=== PATIENT | male | born 1950 | race Caucasian/White ===

== ENCOUNTER 2017-04-11 09:49 | Observation (INO) | payer MEDICARE, BC ==
--- NOTE | 2017-04-11 10:32 | EDM.PDOC ---
ED HPI GENERAL MEDICAL PROBLEM - General Stated Complaint: LOW POTASSIUM Time Seen by Provider: 04/11/17 10:27 Source of Information: Reports: Family History Limitations: Reports: No Limitations - History of Present Illness INITIAL COMMENTS - FREE TEXT/NARRATIVE: Patient is a pleasant 67-year-old gentleman who presented from the clinic with hypokalemia 2.1. His past medical history significant for multiple sclerosis and is chronically diuretics for lower extremity swelling. Had episode of diarrhea that lasted for 3 days last week. Diarrhea is resolved now. Patient was seen by his MS physician in [place] - 2 days ago. Routine blood revealed Hypokalemia the patient does not remember at the level. He was given prescription for potassium and advised to follow with his primary care physician. Today he was seen in clinic and repeat potassium came back 2.1 and he was sent to the emergency room for further evaluation. Patient continued to take his home dose of Lasix. He was brought to the emergency room accompanied by his for further evaluation. Denied any fever, chills, chest pain, shortness of breath, nausea or vomiting. Onset: Gradual Onset Date: 04/09/17 (diagnosed by his MS physician in [place]) Duration: Day(s):, Getting Worse Location: Reports: Other Severity: Moderate Treatments PESTICIDE CONTROL INSPECTOR: Reports: Other (see below) Other Treatments PESTICIDE CONTROL INSPECTOR: Patient was on potassium tablets prior to arrival. R leg Pain Score (Numeric/FACES): 3 - Related Data Allergies Allergy/AdvReac Type Severity Reaction Status Date / Time mold Allergy Sneezing Verified 04/11/17 10:33 Penicillins Allergy Rash Verified 06/29/16 13:22 Home Meds: Home Meds Gabapentin [Neurontin] 300 mg PO BEDTIME 12/31/13 [History] Levothyroxine Sodium [Synthroid] 225 mcg PO DAILY@1600 12/31/13 [History] Omeprazole [priLOSEC OTC] 20 mg PO DAILY@1600 12/31/13 [History] Sertraline [Zoloft] 100 mg PO DAILY@1600 12/31/13 [History] tiZANidine [Zanaflex] 4 mg PO BEDTIME 12/31/13 [History] Aminopyridine 10 mg PO TID@08,12,18 06/29/16 [History] Baclofen [Lioresal] 40 mg PO BID 06/29/16 [History] Cyanocobalamin (Vitamin B12) [Vitamin B12] 250 mcg PO DAILY 06/29/16 [History] Diazepam 10 mg PO TID PRN 06/29/16 [History] Docusate Sodium 100 mg PO BID PRN 06/29/16 [History] Furosemide 80 mg PO BID@08,12 06/29/16 [History] Hydrocodone/Acetaminophen [Hydrocodon-Acetaminophen 5-325] 0.5 tab PO Q6H PRN [History] Tamsulosin [Flomax] 0.4 mg PO DAILY 06/29/16 [History] Warfarin [Coumadin] 2.5 mg PO MOFR@1600 06/29/16 [History] Warfarin [Coumadin] 5 mg PO SUTUWETHSA@1600 06/29/16 [History] Baclofen 20 mg PO DAILY@1200 04/11/17 [History] Cholecalciferol (Vitamin D3) [Vitamin D3] 2,000 unit PO DAILY 04/11/17 [History] Metolazone [Metolazone] 2.5 mg FR 04/11/17 [History] Potassium Chloride [Klor-Con 10] 10 meq PO BID 04/11/17 [History] Past Medical History Cardiovascular History: Reports: Blood Clots/VTE/DVT Gastrointestinal History: Reports: GERD Genitourinary History: Reports: Other (See Below) Other Genitourinary History: indwelling estevez Neurological History: Reports: MS Endocrine/Metabolic History: Reports: Hypothyroidism Dermatologic History: Reports: Other (See Below) Other Dermatologic History: had bed sore after hospitalization in [place] last year, is healed - Past Surgical History HEENT Surgical History: Reports: Detached Retina, Oral Surgery GI Surgical History: Reports: Colonoscopy, Hernia Repair/Other Neurological Surgical History: Reports: Other (See Below) Musculoskeletal Surgical History: Reports: Arthroscopic Knee Social & Family History - Tobacco Use Smoking Status *Q: Never Smoker - Recreational Drug Use Recreational Drug Use: No ED ROS GENERAL - Review of Systems Review Of Systems: ROS reveals no pertinent complaints other than HPI. ED EXAM, GENERAL - Physical Exam Exam: See Below Exam Limited By: No Limitations General Appearance: Alert, No Apparent Distress, Other Ears: Normal External Exam, Normal TMs Nose: Normal Inspection Throat/Mouth: Normal Inspection Head: Atraumatic, Normocephalic Respiratory/Chest: No Respiratory Distress, Lungs Clear GI/Abdominal: Normal Bowel Sounds, Non-Tender, No Organomegaly Extremities: Pedal Edema, Other (Mild bilateral pedal edema) Neurological: Alert, Oriented, Normal Cognition, Other (History of multiple sclerosis and wheel chair bound at baseline. ) Psychiatric: Normal Affect, Normal Mood Skin Exam: Warm, Intact Lymphatic: No Adenopathy Course - Vital Signs Last Recorded V/S: Last Vital Signs Temp 36.7 C 04/11/17 09:55 Pulse 70 04/11/17 09:55 Resp 18 04/11/17 09:55 BP 98/56 L 04/11/17 09:55 Pulse Ox 93 L 04/11/17 09:55 - Orders/Labs/Meds Orders: Active Orders 24 hr Category Date Time Status EKG Documentation Completion [RC] ASDIRECTED Care 04/11/17 11:49 Active Sodium Chloride 0.9% [Normal Saline] 1,000 ml Med 04/11/17 10:45 Active IV ASDIRECTED EKG 12 Lead [EK] Routine Ther 04/11/17 11:49 Ordered Medication Orders Sodium Chloride (Normal Saline) 1,000 mls @ 50 mls/hr IV ASDIRECTED LUIS FERNANDO Last Admin: 04/11/17 10:55 Dose: 50 mls/hr Labs: Laboratory Tests 04/11/17 04/11/17 04/11/17 Range/Units 10:30 10:30 11:27 WBC 8.1 (4.5-12.0) X10-3/uL RBC 5.34 (4.30-5.75) x10(6)uL Hgb 14.8 (11.5-15.5) g/dL Hct 45.7 (30.0-51.3) % MCV 85.6 (80-96) fL MCH 27.7 (27.7-33.6) pg MCHC 32.3 (32.2-35.4) g/dL RDW 15.3 (11.5-15.5) % Plt Count 268 (125-369) X10(3)uL MPV 6.7 L (7.4-10.4) fL Neut % (Auto) 67.3 (46-82) % Lymph % (Auto) 21.2 (13-37) % Cherry % (Auto) 6.3 (4-12) % Eos % (Auto) 1 (1.0-5.0) % Baso % (Auto) 4 H (0-2) % Neut # (Auto) 5.5 (1.6-8.3) # Lymph # (Auto) 1.7 (0.6-5.0) # Cherry # (Auto) 0.5 (0.0-1.3) # Eos # (Auto) 0.1 (0.0-0.8) # Baso # (Auto) 0.3 H (0.0-0.2) # PT 17.7 H (8.7-11.1) INR 1.73 H (0.89-1.13) Sodium 135 (135-145) mmol/L Potassium 2.0 L* D (3.5-5.3) mmol/L Chloride 86 L* D (100-110) mmol/L Carbon Dioxide 42 H* (23-29) mmol/L BUN 20 (8-23) mg/dL Creatinine 1.2 (0.6-1.3) mg/dL Est Cr Clr Drug Dosing 67.36 mL/min Estimated GFR (MDRD) > 60 (>60) BUN/Creatinine Ratio 16.7 (9-20) Glucose 180 H D (80-116) mg/dL Calcium 8.9 (8.6-10.2) mg/dL Magnesium 2.3 (1.8-2.5) mg/dL Total Bilirubin 1.0 (0.1-1.3) mg/dL AST 23 D (5-27) IU/L ALT 25 D (14-26) IU/L Alkaline Phosphatase 64 (56-112) IU/L Total Protein 7.4 (6.0-8.0) g/dL Albumin 3.8 (3.2-4.6) g/dL Globulin 3.6 g/dL Albumin/Globulin Ratio 1.1 Meds: Medications Generic Name Dose Route Start Last Admin Trade Name Freq PRN Reason Stop Dose Admin Sodium Chloride 1,000 mls @ 50 mls/hr 04/11/17 10:45 04/11/17 10:55 Normal Saline IV 50 mls/hr ASDIRECTED LUIS FERNANDO Administration Discontinued Medications Generic Name Dose Route Start Last Admin Trade Name Freq PRN Reason Stop Dose Admin Potassium Chloride 10 meq/ 100 mls @ 100 mls/hr 04/11/17 10:42 04/11/17 10:55 Premix IV 04/11/17 11:41 100 mls/hr ONETIME ONE Administration Potassium Chloride 40 meq 04/11/17 10:43 04/11/17 11:00 Klor-Con M20 PO 04/11/17 10:44 40 meq ONETIME ONE Administration - Re-Assessments/Exams Free Text/Narrative Re-Assessment/Exam: 04/11/17 10:40 67-year-old gentleman with history of multiple sclerosis presenting with significant Hypokalemia 2.1 in the setting diuretics as well as recent episode of diarrhea. Baseline blood work was done including CBC, CMP, magnesium level. Patient was monitored in the emergency room. 04/11/17 11:51 >>>Patient was started on IV Potassium 10 meq via peripheral line and po kcl 40 meq was given. >>>Labs reviewed. Repeat K -- 2.0. He will benefit from admission and correction of Hypokalemia Free Text/Narrative Re-Assessment/Exam: 04/11/17 11:53 >>Severe Hypokalemia >>Dehydration Departure - Departure Time of Disposition: 12:06 (Admitted for observation) Disposition: Refer to Observation Condition: Fair Clinical Impression: Hypokalemia, Dehydration, moderate, Hypokalemia - Discharge Information Critical Care Note - Critical Care Note Total Time (mins): 65 ED Communication - Discussed Case With (1) Discussed Case With (1): Admitting Provider Person/s Notified (1): Dr. Salter - Conversation Summary Admitting Provider Agreed to Patient's Admission: Yes - Problem List & Annotations (1) Hypokalemia SNOMED Code(s): 02099114 Code(s): E87.6 - HYPOKALEMIA Status: Acute Priority: High Current Visit : Yes Onset Date: ~04/11/17 (2) Dehydration, moderate SNOMED Code(s): 9490999170009 Code(s): E86.0 - DEHYDRATION Status: Acute Priority: Medium Current Visit: Yes - Problem List Review Problem List Initiated/Reviewed/Updated: Yes - My Orders Last 24 Hours: My Active Orders 04/11/17 10:45 Sodium Chloride 0.9% [Normal Saline] 1,000 ml IV ASDIRECTED 04/11/17 11:49 EKG Documentation Completion [RC] ASDIRECTED EKG 12 Lead [EK] Routine - Assessment/Plan Last 24 Hours: My Active Orders 04/11/17 10:45 Sodium Chloride 0.9% [Normal Saline] 1,000 ml IV ASDIRECTED 04/11/17 11:49 EKG Documentation Completion [RC] ASDIRECTED EKG 12 Lead [EK] Routine
[2017-04-11] MEDS ORDERED: Potassium Chloride 10 MEQ in Premix Bag 1 BAG IV ONE ×2 (10:42→12:20)
[2017-04-11] MEDS ORDERED: Potassium Chloride 20 MEQ Tab.ER PO ONE (10:43)
[2017-04-11] MEDS ORDERED: Sodium Chloride 0.9% 1,000 ML IV SCH (10:45)
[2017-04-11] MEDS ORDERED: Docusate Sodium 100 MG Cap PO PRN (12:27)
[2017-04-11] MEDS ORDERED: Acetaminophen/HYDROcodone 325-5 MG Tab PO PRN (12:27)
[2017-04-11] MEDS ORDERED: Diazepam 10 MG Tab PO PRN (12:27)
[2017-04-11] MEDS ORDERED: Warfarin 5 MG Tab *PTOM PO SCH (16:00)
[2017-04-11] MEDS: Levothyroxine 150 MCG Tab *PTOM PO SCH (16:29)
[2017-04-11] MEDS: OMEPRAZOLE 20 MG PO SCH (16:29)
[2017-04-11] MEDS: Sertraline 100 MG Tab *PTOM PO SCH (16:31)
--- NOTE | 2017-04-11 17:18 | PCM.HP ---
H&P History of Present Illness - General Date of Service: 04/11/17 Admit Problem/Dx: Admission Diagnosis/Problem Admission Diagnosis/Problem Hypokalemia Source of Information: Patient, Family History Limitations: Reports: No Limitations - History of Present Illness Initial Comments - Free Text/Narative: This is a 67-year-old male patient that is wheelchair bound from [place]. He had gastroenteritis over the weekend and was found to be hypokalemic. I gave him some extra potassium as potassium was continued to drop. He takes Lasix daily and metolazone once a week. His diarrhea is gone now. You see in the ER and his potassium was 2.0. He has no concerns today. Has no chest pain, palpitations, shortness of breath, leg swelling. R leg Pain Score (Numeric/FACES): 3 - Related Data Allergies/Adverse Reactions: Allergies Allergy/AdvReac Type Severity Reaction Status Date / Time mold Allergy Sneezing Verified 04/11/17 10:33 Penicillins Allergy Rash Verified 06/29/16 13:22 Home Medications: Home Meds Gabapentin [Neurontin] 300 mg PO BEDTIME 12/31/13 [History] Levothyroxine Sodium [Synthroid] 225 mcg PO DAILY@1600 12/31/13 [History] Omeprazole [priLOSEC OTC] 20 mg PO DAILY@1600 12/31/13 [History] Sertraline [Zoloft] 100 mg PO DAILY@1600 12/31/13 [History] tiZANidine [Zanaflex] 4 mg PO BEDTIME 12/31/13 [History] Aminopyridine 10 mg PO TID@08,12,18 06/29/16 [History] Baclofen [Lioresal] 40 mg PO BID 06/29/16 [History] Cyanocobalamin (Vitamin B12) [Vitamin B12] 250 mcg PO DAILY 06/29/16 [History] Diazepam 10 mg PO TID PRN 06/29/16 [History] Docusate Sodium 100 mg PO BID PRN 06/29/16 [History] Furosemide 80 mg PO BID@08,12 06/29/16 [History] Hydrocodone/Acetaminophen [Hydrocodon-Acetaminophen 5-325] 0.5 tab PO Q6H PRN [History] Tamsulosin [Flomax] 0.4 mg PO DAILY 06/29/16 [History] Warfarin [Coumadin] 2.5 mg PO MOFR@1600 06/29/16 [History] Warfarin [Coumadin] 5 mg PO SUTUWETHSA@1600 06/29/16 [History] Baclofen 20 mg PO DAILY@1200 04/11/17 [History] Cholecalciferol (Vitamin D3) [Vitamin D3] 2,000 unit PO DAILY 04/11/17 [History] Metolazone [Metolazone] 2.5 mg FR 04/11/17 [History] Potassium Chloride [Klor-Con 10] 10 meq PO BID 04/11/17 [History] Past Medical History HEENT History: Reports: Impaired Vision Cardiovascular History: Reports: Blood Clots/VTE/DVT Gastrointestinal History: Reports: GERD Genitourinary History: Reports: Other (See Below) Other Genitourinary History: indwelling estevez Musculoskeletal History: Reports: None Other Musculoskeletal History: Hx MS Neurological History: Reports: MS Psychiatric History: Reports: Depression Endocrine/Metabolic History: Reports: Hypothyroidism Dermatologic History: Reports: Other (See Below) Other Dermatologic History: had bed sore after hospitalization in [place] last year, is healed - Infectious Disease History Infectious Disease History: Reports: Chicken Pox, Measles, Mumps - Past Surgical History HEENT Surgical History: Reports: Detached Retina, Oral Surgery Other HEENT Surgeries/Procedures: tooth pulled Cardiovascular Surgical History: Reports: None GI Surgical History: Reports: Colonoscopy, Hernia Repair/Other Male Surgical History: Reports: None Endocrine Surgical History: Reports: None Neurological Surgical History: Reports: Other (See Below) Other Neurological Surgeries/Procedures: neck surgery Musculoskeletal Surgical History: Reports: Arthroscopic Knee, Other (See Below) Other Musculoskeletal Surgeries/Procedures:: Right knee arthroscopic surgery Social & Family History - Family History Family Medical History: Noncontributory - Tobacco Use Smoking Status *Q: Never Smoker Second Hand Smoke Exposure: No - Caffeine Use Caffeine Use: Reports: Soda - Recreational Drug Use Recreational Drug Use: No H&P Review of Systems - Review of Systems: Review Of Systems: See Below General: Reports: No Symptoms HEENT: Reports: No Symptoms Pulmonary: Reports: No Symptoms Cardiovascular: Reports: No Symptoms Gastrointestinal: Reports: No Symptoms Genitourinary: Reports: No Symptoms Musculoskeletal: Reports: Other (Weakness due to MS) Skin: Reports: No Symptoms Psychiatric: Reports: No Symptoms Neurological: Reports: No Symptoms Hematologic/Lymphatic: Reports: No Symptoms Immunologic: Reports: No Symptoms Exam - Exam Exam: See Below - Vital Signs Vital Signs: Last Vital Signs Temp 98.5 F 04/11/17 16:10 Pulse 72 04/11/17 16:10 Resp 16 04/11/17 16:10 BP 100/60 04/11/17 16:10 Pulse Ox 91 L 04/11/17 16:10 Weight: 275 lb - Exam General: Alert, Oriented, Cooperative HEENT: PERRLA, Posterior Pharynx Clear, TMs Clear Neck: Supple, Trachea Midline Lungs: Clear to Auscultation, Normal Respiratory Effort Cardiovascular: Regular Rate, Regular Rhythm. No: Systolic Murmur, Diastolic Murmur Abdomen: Normal Bowel Sounds, Soft. No: Peritoneal Signs, Distention, Guarding Extremities: No: Edema Neuro Extensive - Mental Status: Alert, Oriented x3, Normal Mood/Affect, Normal Cognition Neuro Extensive - Motor, Sensory, Reflexes: No: Normal Gait Psychiatric: Alert, Normal Affect, Normal Mood - Patient Data Result Diagrams: 04/11/17 10:30 04/11/17 10:30 *Q Meaningful Use (ADM) - VTE *Q VTE Criteria *Q: - Stroke *Q Stroke Criteria *Q: - AMI *Q AMI Criteria *Q: - Problem List (1) Hypokalemia SNOMED Code(s): 91021748 ICD Code: E87.6 - HYPOKALEMIA Status: Acute Priority: High Current Visit: Yes Onset Date: ~04/11/17 (2) Multiple sclerosis SNOMED Code(s): 81406399 ICD Code: G35 - MULTIPLE SCLEROSIS Status: Acute Current Visit: No Problem List Initiated/Reviewed/Updated: Yes Orders Last 24hrs: Active Orders 24 hr Category Date Time Status Antiembolic Devices [RC] .Routine Care 04/11/17 12:16 Active Cardiac Monitoring [RC] QSHIFT Care 04/11/17 12:12 Active Pulse Oximetry [RC] .PRN Care 04/11/17 12:16 Active VTE/DVT Education [RC] Click to Edit Care 04/11/17 12:16 Active Vital Signs [RC] 00,04,08,12,16,20 Care 04/11/17 12:16 Active Heart Healthy Diet [DIET] Diet 04/11/17 Dinner Active BASIC METABOLIC PANEL,BMP [CHEM] AM Lab 04/12/17 05:11 Ordered Acetaminophen/HYDROcodone [[place] 325-5 MG] Med 04/11/17 12:27 Active 0.5 tab PO Q6H PRN Aminopyridine Med 04/11/17 18:00 Active 10 mg PO TID@08,12,18 Baclofen [Baclofen] Med 04/11/17 17:15 Active 20 mg PO DAILY@1200 Baclofen [Lioresal] Med 04/11/17 21:00 Active 40 mg PO BID Cholecalciferol (Vitamin D3) [Vitamin D3] Med 04/12/17 09:00 Active 5,000 unit PO DAILY Cyanocobalamin (Vitamin B12) [Vitamin B12] Med 04/12/17 09:00 Active 1,000 mcg PO DAILY Diazepam [Valium] Med 04/11/17 12:27 Active 10 mg PO TID PRN Docusate Sodium [Colace] Med 04/11/17 12:27 Active 100 mg PO BID PRN Gabapentin [Neurontin] Med 04/11/17 21:00 Active 300 mg PO BEDTIME Levothyroxine Med 04/11/17 16:00 Active 225 mcg PO DAILY@1600 Omeprazole [priLOSEC OTC] Med 04/11/17 16:00 Active 20 mg PO DAILY@1600 Potassium Chloride [Klor-Con M20] Med 04/11/17 17:00 Active 40 meq PO TID Sertraline [Zoloft] Med 04/11/17 16:00 Active 100 mg PO DAILY@1600 Tamsulosin [Flomax] Med 04/12/17 09:00 Active 0.4 mg PO DAILY Warfarin [Coumadin] Med 04/13/17 16:00 Active 2.5 mg PO MOFR@1600 Warfarin [Coumadin] Med 04/12/17 16:00 Active 5 mg PO SUTUWETHSA@1600 tiZANidine [Zanaflex] Med 04/11/17 21:00 Active 4 mg PO BEDTIME Convert IV to Saline Lock [OM.PC] Routine Oth 04/11/17 14:56 Ordered DVT/VTE Prophylaxis Reflex [OM.PC] Per Unit Routine Oth 04/11/17 12:16 Ordered Resuscitation Status Routine Resus Stat 04/11/17 12:15 Ordered Medication Orders Hydrocodone Bitart/Acetaminophen ([place] 325-5 Mg) 0.5 tab PO Q6H PRN PRN Reason: Pain Cyanocobalamin (Vitamin B12) 1,000 mcg PO DAILY [facility] Diazepam (Valium) 10 mg PO TID PRN PRN Reason: Spasms Docusate Sodium (Colace) 100 mg PO BID PRN PRN Reason: Constipation Gabapentin (Neurontin) 300 mg PO BEDTIME [facility] Levothyroxine Sodium (Levothyroxine) 225 mcg PO DAILY@1600 [facility] Last Admin: 04/11/17 16:29 Dose: 225 mcg Aminopyridine 5mg (Caps *Ptom) 10 mg PO TID@08,12,18 [facility] Baclofen 20mg *Ptom 40 mg PO BID [facility] Vitamin D 5,000 (Units) 5,000 unit PO DAILY [facility] Omeprazole 20mg Tab (*Ptom) 20 mg PO DAILY@1600 [facility] Last Admin: 04/11/17 16:29 Dose: 20 mg Baclofen 20 Mg 20 mg PO DAILY@1200 [facility] Potassium Chloride (Klor-Con M20) 40 meq PO TID [facility] Sertraline HCl (Zoloft) 100 mg PO DAILY@1600 [facility] Last Admin: 04/11/17 16:31 Dose: 100 mg Tamsulosin HCl (Flomax) 0.4 mg PO DAILY [facility] Tizanidine HCl (Zanaflex) 4 mg PO BEDTIME [facility] Warfarin Sodium (Coumadin) 2.5 mg PO MOFR@1600 [facility] Warfarin Sodium (Coumadin) 5 mg PO SUTUWETHSA@1600 [facility] Assessment/Plan Comment:: 1. Admit to observation. 2. He was given 10 mEq of IV potassium. I'll put him on 40 mEq 3 times a day by mouth. 3. Check panel 8 in the morning. 4. Telemetry. 5. Regular diet. 6. Patient was to be a DNR/DNI. I wrote that order.
[2017-04-11] MEDS: Potassium Chloride 20 MEQ Tab.ER PO SCH ×2 (17:22→20:01)
[2017-04-11] MEDS: BACLOFEN 20 MG PO SCH ×2 (17:23→20:00)
[2017-04-11] MEDS: AMINOPYRIDINE PO SCH (17:27)
[2017-04-11] MEDS ORDERED: TIZANIDINE 4 MG PO SCH (21:00)
--- NOTE | 2017-04-12 07:35 | PCM.PN ---
- General Info Date of Service: 04/12/17 Admission Dx/Problem (Free Text): Patient without complaints. He denies chest pain, palpitations, shortness of breath or leg swelling. - Patient Data Vitals - most recent: Last Vital Signs Temp 98.1 F 04/12/17 03:54 Pulse 71 04/12/17 03:54 Resp 17 04/12/17 03:54 BP 105/68 04/12/17 03:54 Pulse Ox 85 L 04/12/17 03:54 Weight - most recent: 275 lb I&O - last 24 hours: Intake & Output 04/11/17 04/12/17 04/12/17 22:59 06:59 14:59 Intake Total 200 775 Output Total 350 500 Balance -150 275 Lab Results last 24 hrs: Laboratory Results - last 24 hr 04/12/17 Range/Units 06:10 Sodium 140 (135-145) mmol/L Potassium 2.7 L* (3.5-5.3) mmol/L Chloride 92 L D (100-110) mmol/L Carbon Dioxide 39 H (23-29) mmol/L BUN 19 (8-23) mg/dL Creatinine 1.0 (0.6-1.3) mg/dL Est Cr Clr Drug Dosing 80.83 mL/min Estimated GFR (MDRD) > 60 (>60) BUN/Creatinine Ratio 19.0 (9-20) Glucose 118 H (80-116) mg/dL Calcium 8.9 (8.6-10.2) mg/dL Med Orders - Current: Current Medications Hydrocodone Bitart/Acetaminophen ([place] 325-5 Mg) 0.5 tab PO Q6H PRN PRN Reason: Pain Cyanocobalamin (Vitamin B12) 1,000 mcg PO DAILY [facility] Diazepam (Valium) 10 mg PO TID PRN PRN Reason: Spasms Docusate Sodium (Colace) 100 mg PO BID PRN PRN Reason: Constipation Gabapentin (Neurontin) 300 mg PO BEDTIME [facility] Last Admin: 04/11/17 20:01 Dose: 300 mg Levothyroxine Sodium (Levothyroxine) 225 mcg PO DAILY@1600 [facility] Last Admin: 04/11/17 16:29 Dose: 225 mcg Aminopyridine 5mg (Caps *Ptom) 10 mg PO TID@08,12,18 [facility] Last Admin: 04/11/17 17:27 Dose: 10 mg Baclofen 20mg *Ptom 40 mg PO BID [facility] Last Admin: 04/11/17 20:00 Dose: 40 mg Vitamin D 5,000 (Units) 5,000 unit PO DAILY [facility] Omeprazole 20mg Tab (*Ptom) 20 mg PO DAILY@1600 [facility] Last Admin: 04/11/17 16:29 Dose: 20 mg Baclofen 20 Mg 20 mg PO DAILY@1200 [facility] Last Admin: 04/11/17 17:23 Dose: 20 mg Potassium Chloride (Klor-Con M20) 40 meq PO TID [facility] Last Admin: 04/11/17 20:01 Dose: 40 meq Sertraline HCl (Zoloft) 100 mg PO DAILY@1600 [facility] Last Admin: 04/11/17 16:31 Dose: 100 mg Tamsulosin HCl (Flomax) 0.4 mg PO DAILY [facility] Tizanidine HCl (Zanaflex) 4 mg PO BEDTIME [facility] Last Admin: 04/11/17 20:02 Dose: 4 mg Warfarin Sodium (Coumadin) 2.5 mg PO MOFR@1600 [facility] Warfarin Sodium (Coumadin) 5 mg PO SUTUWETHSA@1600 [facility] Discontinued Medications Potassium Chloride 10 meq/ (Premix) 100 mls @ 100 mls/hr IV ONETIME ONE Stop: 04/11/17 11:41 Last Admin: 04/11/17 10:55 Dose: 100 mls/hr Sodium Chloride (Normal Saline) 1,000 mls @ 50 mls/hr IV ASDIRECTED [facility] Last Admin: 04/11/17 10:55 Dose: 50 mls/hr Potassium Chloride 10 meq/ (Premix) 100 mls @ 100 mls/hr IV ONETIME ONE Stop: 04/11/17 13:19 Last Admin: 04/11/17 13:39 Dose: Not Given Baclofen 20 Mg 20 mg PO DAILY@1200 [facility] Potassium Chloride (Klor-Con M20) 40 meq PO ONETIME ONE Stop: 04/11/17 10:44 Last Admin: 04/11/17 11:00 Dose: 40 meq Warfarin Sodium (Coumadin) 10 mg PO 1600 [facility] Stop: 04/11/17 16:01 Last Admin: 04/11/17 16:27 Dose: 10 mg - Exam General: alert, oriented, cooperative Neck: supple Lungs: Clear to auscultation, Normal respiratory effort. No: Crackles, Rales, Rhonchi Cardiovascular: Regular Rate, Regular Rhythm. No: No Murmurs, Bradycardia, Tachycardia, Murmurs Extremities: no edema - Problem List & Annotations (1) Hypokalemia SNOMED Code(s): 88556219 Code(s): E87.6 - HYPOKALEMIA Status: Acute Priority: High Current Visit : Yes Onset Date: ~04/11/17 (2) Multiple sclerosis SNOMED Code(s): 53593023 Code(s): G35 - MULTIPLE SCLEROSIS Status: Acute Current Visit: No - Problem List Review Problem List Initiated/Reviewed/Updated: Yes - My Orders Last 24 Hours: My Active Orders 04/11/17 12:15 Resuscitation Status Routine 04/11/17 14:56 Convert IV to Saline Lock [OM.PC] Routine 04/11/17 17:00 Potassium Chloride [Klor-Con M20] 40 meq PO TID 04/12/17 09:00 Potassium Chloride [Klor-Con M20] 40 meq PO QID 04/13/17 05:11 BASIC METABOLIC PANEL,BMP [CHEM] AM - Plan Plan:: 1. Continue telemetry. 2. Increase 40 mEq of potassium to 4 times a day by mouth. 3. Check BMP at 4 PM today.
[2017-04-12] MEDS ORDERED: VITAMIN D 5000 UNIT PO SCH (09:00)
[2017-04-12] MEDS ORDERED: Tamsulosin 0.4 MG Cap.ER *PTOM PO SCH (09:00)
[2017-04-12] MEDS ORDERED: Cyanocobalamin (Vitamin B12) 1,000 MCG Tab *PTOM PO SCH (09:00)
[2017-04-12] MEDS: AMINOPYRIDINE PO SCH ×3 (09:18→19:35)
[2017-04-12] MEDS: BACLOFEN 20 MG PO SCH ×2 (09:19→12:54)
[2017-04-12] MEDS: Potassium Chloride 20 MEQ Tab.ER PO SCH ×3 (09:20→17:29)
[2017-04-12] MEDS ORDERED: BACLOFEN 20 MG PO SCH (12:00)
[2017-04-12] MEDS ORDERED: Warfarin 5 MG Tab *PTOM PO SCH (16:00)
[2017-04-12] MEDS: Sertraline 100 MG Tab *PTOM PO SCH (16:44)
[2017-04-12] MEDS: Levothyroxine 150 MCG Tab *PTOM PO SCH (16:44)
[2017-04-12] MEDS: OMEPRAZOLE 20 MG PO SCH (16:44)
--- NOTE | 2017-04-12 17:29 | PCM.SN ---
- Free Text/Narrative Note: Patient's potassium came back at 3.3. Will discharge the patient to home on 20 mEq of potassium twice a day. He'll recheck his potassium in 1 week and see his primary care provider.
--- NOTE | 2017-04-12 17:30 | PCM.DCSUM1 ---
Discharge Summary - Hospital Course Free Text/Narrative:: Hospital course-patient was put in the hospital for heart monitoring released profoundly hypokalemic. Potassium is initially 2.0. He was given 10 mEq of IV potassium. And then we started him on 40 mg once 3 times a day. The next morning his potassium was 2.7. So increase the potassium to 40 mEq 4 times a day. By the afternoon it was 3.3. Patient had no problems and no arrhythmias. Brief History: This is a 67-year-old male patient that is wheelchair bound from MS. He had gastroenteritis over the weekend and was found to be hypokalemic. I gave him some extra potassium as potassium was continued to drop. He takes Lasix daily and metolazone once a week. His diarrhea is gone now. You see in the ER and his potassium was 2.0. He has no concerns today. Has no chest pain, palpitations, shortness of breath, leg swelling. - Discharge Data Discharge Date: 04/12/17 Discharge Disposition: Home, Self-Care 01 Condition: Good - Discharge Diagnosis/Problem(s) (1) Hypokalemia SNOMED Code(s): 92295453 ICD Code: E87.6 - HYPOKALEMIA Status: Acute Priority: High Current Visit: Yes Onset Date: ~04/11/17 (2) Multiple sclerosis SNOMED Code(s): 87286110 ICD Code: G35 - MULTIPLE SCLEROSIS Status: Acute Current Visit: No - Patient Instructions Diet: Regular Diet as Tolerated Activity: As Tolerated Driving: Do Not Drive Showering/Bathing: May Shower Notify Provider of: Fever, Swelling and Redness, Drainage, Nausea and/or Vomiting Other/Special Instructions: 1. Recheck with Dr. Moore in 1 week with a BMP. - Discharge Plan Prescriptions/Med Rec: Potassium Chloride [Klor-Con M20] 20 meq PO BID #60 tab.er Home Medications: Home Meds Gabapentin [Neurontin] 300 mg PO BEDTIME 12/31/13 [History] Levothyroxine Sodium [Synthroid] 225 mcg PO DAILY@1600 12/31/13 [History] Omeprazole [priLOSEC OTC] 20 mg PO DAILY@1600 12/31/13 [History] Sertraline [Zoloft] 100 mg PO DAILY@159912/31/13 [History] tiZANidine [Zanaflex] 4 mg PO BEDTIME 12/31/13 [History] Aminopyridine 10 mg PO TID@08,,18 06/29/16 [History] Baclofen [Lioresal] 40 mg PO BID 06/29/16 [History] Cyanocobalamin (Vitamin B12) [Vitamin B12] 250 mcg PO DAILY 06/29/16 [History] Diazepam 10 mg PO TID PRN 06/29/16 [History] Docusate Sodium 100 mg PO BID PRN 06/29/16 [History] Furosemide 80 mg PO BID@,06/29/16 [History] Hydrocodone/Acetaminophen [Hydrocodon-Acetaminophen 5-325] 0.5 tab PO Q6H PRN [History] Tamsulosin [Flomax] 0.4 mg PO DAILY 06/29/16 [History] Warfarin [Coumadin] 2.5 mg PO MOFR@1600 06/29/16 [History] Warfarin [Coumadin] 5 mg PO SUTUWETHSA@1600 06/29/16 [History] Baclofen 20 mg PO DAILY@1200 04/11/17 [History] Cholecalciferol (Vitamin D3) [Vitamin D3] 2,000 unit PO DAILY 04/11/17 [History] Metolazone 2.5 mg FR 04/11/17 [History] Potassium Chloride [Klor-Con M20] 20 meq PO BID #60 tab.er 04/12/17 [Rx] Patient Handouts: Deep Vein Thrombosis Forms: ED Department Discharge Referrals: Yoel Moore MD [Primary Care Provider] - - Discharge Summary/Plan Comment DC Time >30 min.: No - Patient Data Vitals - Most Recent: Last Vital Signs Temp 97.5 F 04/12/17 12:30 Pulse 74 04/12/17 12:30 Resp 20 04/12/17 12:30 BP 111/58 L 04/12/17 12:30 Pulse Ox 86 L 04/12/17 12:30 Weight - Most Recent: 275 lb I&O - Last 24 hours: Intake & Output 04/12/17 04/12/17 04/12/17 06:59 14:59 22:59 Intake Total 775 Output Total 500 Balance 275 Lab Results - Last 24 hrs: Laboratory Results - last 24 hr 04/12/17 04/12/17 Range/Units 06:10 16:05 Sodium 140 140 (135-145) mmol/L Potassium 2.7 L* 3.3 L (3.5-5.3) mmol/L Chloride 92 L D 93 L (100-110) mmol/L Carbon Dioxide 39 H 40 H* (23-29) mmol/L BUN 19 22 (8-23) mg/dL Creatinine 1.0 1.2 (0.6-1.3) mg/dL Est Cr Clr Drug Dosing 80.83 67.36 mL/min Estimated GFR (MDRD) > 60 > 60 (>60) BUN/Creatinine Ratio 19.0 18.3 (9-20) Glucose 118 H 105 (80-116) mg/dL Calcium 8.9 9.4 (8.6-10.2) mg/dL Med Orders - Current: Current Medications Hydrocodone Bitart/Acetaminophen ([place] 325-5 Mg) 0.5 tab PO Q6H PRN PRN Reason: Pain Last Admin: 04/12/17 08:06 Dose: 0.5 tab Cyanocobalamin (Vitamin B12) 1,000 mcg PO DAILY [facility] Last Admin: 04/12/17 09:21 Dose: 1,000 mcg Diazepam (Valium) 10 mg PO TID PRN PRN Reason: Spasms Docusate Sodium (Colace) 100 mg PO BID PRN PRN Reason: Constipation Gabapentin (Neurontin) 300 mg PO BEDTIME [facility] Last Admin: 04/11/17 20:01 Dose: 300 mg Levothyroxine Sodium (Levothyroxine) 225 mcg PO DAILY@1600 [facility] Last Admin: 04/12/17 16:44 Dose: 225 mcg Aminopyridine 5mg (Caps *Ptom) 10 mg PO TID@,,18 [facility] Last Admin: 04/12/17 12:54 Dose: 10 mg Baclofen 20mg *Ptom 40 mg PO BID [facility] Last Admin: 04/12/17 09:19 Dose: 40 mg Vitamin D 5,000 (Units) 5,000 unit PO DAILY [facility] Last Admin: 04/12/17 09:19 Dose: 5,000 unit Omeprazole 20mg Tab (*Ptom) 20 mg PO DAILY@1600 [facility] Last Admin: 04/12/17 16:44 Dose: 20 mg Baclofen 20 Mg 20 mg PO DAILY@1200 [facility] Last Admin: 04/12/17 12:54 Dose: 20 mg Potassium Chloride (Klor-Con M20) 40 meq PO QID [facility] Last Admin: 04/12/17 12:56 Dose: 40 meq Sertraline HCl (Zoloft) 100 mg PO DAILY@1600 [facility] Last Admin: 04/12/17 16:44 Dose: 100 mg Tamsulosin HCl (Flomax) 0.4 mg PO DAILY [facility] Last Admin: 04/12/17 09:20 Dose: 0.4 mg Tizanidine HCl (Zanaflex) 4 mg PO BEDTIME [facility] Last Admin: 04/11/17 20:02 Dose: 4 mg Warfarin Sodium (Coumadin) 2.5 mg PO MOFR@1600 [facility] Warfarin Sodium (Coumadin) 5 mg PO SUTUWETHSA@1600 [facility] Last Admin: 04/12/17 16:43 Dose: 5 mg Discontinued Medications Potassium Chloride 10 meq/ (Premix) 100 mls @ 100 mls/hr IV ONETIME ONE Stop: 04/11/17 11:41 Last Admin: 04/11/17 10:55 Dose: 100 mls/hr Sodium Chloride (Normal Saline) 1,000 mls @ 50 mls/hr IV ASDIRECTED [facility] Last Admin: 04/11/17 10:55 Dose: 50 mls/hr Potassium Chloride 10 meq/ (Premix) 100 mls @ 100 mls/hr IV ONETIME ONE Stop: 04/11/17 13:19 Last Admin: 04/11/17 13:39 Dose: Not Given Baclofen 20 Mg 20 mg PO DAILY@1200 [facility] Potassium Chloride (Klor-Con M20) 40 meq PO ONETIME ONE Stop: 04/11/17 10:44 Last Admin: 04/11/17 11:00 Dose: 40 meq Potassium Chloride (Klor-Con M20) 40 meq PO TID [facility] Last Admin: 04/11/17 20:01 Dose: 40 meq Warfarin Sodium (Coumadin) 10 mg PO 1600 [facility] Stop: 04/11/17 16:01 Last Admin: 04/11/17 16:27 Dose: 10 mg *Q Meaningful Use (DIS) - VTE *Q VTE Criteria *Q: - Stroke *Q Stroke Criteria *Q: - AMI *Q AMI Criteria *Q:
[2017-04-12 19:29] VITALS: BP 107/64
[2017-04-13] MEDS ORDERED: Warfarin 5 MG Tab *PTOM PO SCH (16:00)
== END 2017-04-12 20:15 | disposition home or self-care (01) ==
LOC: FB.ED 09:49 → FB.MS 11:56
PROVIDERS: ADMIT Family Medicine; ATTEND Family Medicine
DX: E87.6 Hypokalemia (principal); E86.0 Dehydration; G35 Multiple sclerosis; E03.9 Hypothyroidism, unspecified; R19.7 Diarrhea, unspecified; R94.31 Abnormal electrocardiogram [ECG] [EKG]; K21.9 Gastro-esophageal reflux disease without esophagitis; Z98.890 Other specified postprocedural states; Z88.0 Allergy status to penicillin; Z91.048 Other nonmedicinal substance allergy status; Z79.899 Other long term (current) drug therapy; Z79.01 Long term (current) use of anticoagulants; Z86.718 Personal history of other venous thrombosis and embolism
CPT/HCPCS: 36415; 80048; 80053; 83735; 85025; 85610; 93005; 96365; 96366; 99284; 99285; A9270; G0378; J3480; J7040; 99217; 99219

== ENCOUNTER 2017-04-30 13:37 | Emergency (ER) | payer MEDICARE, BC ==
[2017-04-30] MEDS ORDERED: Sodium Chloride 0.9% 10 ML Syringe FLUSH PRN (13:49)
[2017-04-30] MEDS ORDERED: Levofloxacin/Dextrose 5%-Water 500 MG in Premix Bag 1 BAG IV ONE (13:50)
[2017-04-30] MEDS ORDERED: NS + KCl 20mEq/L 1,000 ML IV SCH (14:00)
[2017-04-30] MEDS ORDERED: Potassium Chloride 20 MEQ Tab.ER PO ONE (14:53)
[2017-04-30] MEDS ORDERED: Ciprofloxacin 500 MG Tab PO ONE (17:23)
[2017-04-30 18:23] VITALS: BP 126/68
--- NOTE | 2017-04-30 22:31 | ER ---
DATE SEEN: 04/30/2017 CHIEF COMPLAINT: Hypokalemia. HISTORY OF PRESENT ILLNESS: This is a 67-year-old male who was brought in from home after the home health nurse manolo a basic panel and found out that he has low potassium. This has been going on for a while. His potassium was 2.7. He feels weak and tired. He has a history of multiple sclerosis and is mostly wheelchair bound with a neurogenic bladder. REVIEW OF SYSTEMS: There is no fever, neither is there any chest pain, but he is chronically short of breath. ALLERGIES: Reviewed. MEDICATIONS: Reviewed. PHYSICAL EXAMINATION: GENERAL: He is not in distress. He is wheelchair bound. VITAL SIGNS: Blood pressure is normal. Pulse is 76. CHEST: Clear. CARDIOVASCULAR: Normal. LABORATORY DATA: After replacement with 60 of potassium orally and 20 of potassium chloride IV with 5000 mL of normal saline, his potassium came back to 3.0. PLAN: I discharged him home with a repeat basic profile on Sunday and return to the ED with any worsening symptoms. See Dr. Moore later this week. Time seen was 1400 hours. /[id number] 2220 EZE/ANTONIA
--- NOTE | 2017-05-05 22:01 | ER ---
DATE SEEN: 04/30/2017 ADDENDUM: IMPRESSION: 1. Hypokalemia. 2. Urinary tract infection. /[id number] 2015 2150 EZE/ANTONIA
== END 2017-04-30 17:45 | disposition home or self-care (01) ==
LOC: FB.ED 13:37
DX: E87.6 Hypokalemia (principal); N39.0 Urinary tract infection, site not specified; G35 Multiple sclerosis; Z99.3 Dependence on wheelchair
CPT/HCPCS: 36415; 80048; 85025; 96361; 96365; 99284; A9270; J1956; J3480; 96366; 96368; 99283

== ENCOUNTER 2017-07-13 21:14 | Inpatient (IN) | payer MEDICARE, BC ==
[2017-07-13] MEDS ORDERED: NS + KCl 20mEq/L 1,000 ML IV SCH (23:00)
[2017-07-13] MEDS ORDERED: Levofloxacin/Dextrose 5%-Water 0 ML IV ONE (23:01)
[2017-07-13] MEDS: Albuterol/Ipratropium 3.0-0.5 MG/3 ML Neb Soln NEB SCH (23:07)
[2017-07-13] MEDS ORDERED: Ondansetron 4 MG/2 ML SDV IVPUSH PRN (23:08)
[2017-07-13] MEDS ORDERED: Levofloxacin/Dextrose 5%-Water 150 ML IV ONE (23:14)
[2017-07-13] MEDS: Levofloxacin/Dextrose 5%-Water 750 MG in Premix Bag 1 BAG IV SCH (23:15)
--- NOTE | 2017-07-13 23:48 | EDM.PDOC ---
ED HPI GENERAL MEDICAL PROBLEM - General Chief Complaint: General Stated Complaint: CATH ISSUES, ABD ISSUES Time Seen by Provider: 07/13/17 21:25 Source of Information: Reports: Patient, Family History Limitations: Reports: No Limitations - History of Present Illness INITIAL COMMENTS - FREE TEXT/NARRATIVE: Patient is a 67 year old man who has Multiple Sclerosis which has caused him to become wheelchair bound with a neurogenic bladder. He has an indwelling urinary catheter. He also has recently developed a pressure sore on his upper buttocks that the wound center is treating in [place] with wet to dry dressings. He started having back pain and nausea this afternoon at 3 pm. He went to the walk in clinic this evening and they noted that he was tachycardic and that his oxygen saturation was in the lower 80% range. He also has a fever but no chills. He has a lot of pain in his mid to lower back and he feels full in the abdomen which makes him feel a little short of breath. Onset: Today Onset Date: 07/13/17 Onset Time: 15:00 Duration: Hour(s): (6) Location: Reports: Abdomen, Back, Generalized Quality: Reports: Ache Severity: Moderate Improves with: Reports: None Worsens with: Reports: None Context: Reports: Other (MS and indwelling catheter.) Associated Symptoms: Reports: Nausea/Vomiting - Related Data Allergies Allergy/AdvReac Type Severity Reaction Status Date / Time mold Allergy Sneezing Verified 07/13/17 21:31 Penicillins Allergy Rash Verified 07/13/17 21:31 Home Meds: Home Meds Gabapentin [Neurontin] 300 mg PO BEDTIME 12/31/13 [History] Levothyroxine Sodium [Synthroid] 225 mcg PO DAILY@152912/31/13 [History] Omeprazole [priLOSEC OTC] 20 mg PO DAILY@152912/31/13 [History] Sertraline [Zoloft] 100 mg PO DAILY@152912/31/13 [History] tiZANidine [Zanaflex] 4 mg PO BEDTIME 12/31/13 [History] Cyanocobalamin (Vitamin B12) [Vitamin B12] 250 mcg PO DAILY 06/29/16 [History] Diazepam 10 mg PO TID PRN 06/29/16 [History] Docusate Sodium 100 mg PO BID 06/29/16 [History] Furosemide 80 mg PO BID@08,12 06/29/16 [History] Hydrocodone/Acetaminophen [Hydrocodon-Acetaminophen 5-325] 1 tab PO Q6H PRN 11/13 [History] Tamsulosin [Flomax] 0.4 mg PO DAILY 06/29/16 [History] Warfarin [Coumadin] 2.5 mg PO MOWEFR@1600 06/29/16 [History] Warfarin [Coumadin] 5 mg PO SUTUTHSA@1600 06/29/16 [History] Cholecalciferol (Vitamin D3) [Vitamin D3] 2,000 unit PO DAILY 04/11/17 [History] Metolazone 2.5 mg PO FR 04/11/17 [History] Potassium Chloride [Klor-Con M20] 20 meq PO BID #60 tab.er 04/12/17 [Rx] .Aminopyridine 20 mg PO 0800,1200,1800 07/13/17 [History] Baclofen [Baclofen] 1.5 tab PO 0800 07/13/17 [History] Baclofen [Baclofen] 2 tab PO 1500,2030 07/13/17 [History] Past Medical History HEENT History: Reports: Impaired Vision, Other (See Below) Other HEENT History: Detached retina 1979. Cardiovascular History: Reports: Blood Clots/VTE/DVT Gastrointestinal History: Reports: GERD Genitourinary History: Reports: Other (See Below) Other Genitourinary History: Indwelling estevez, urethral. Musculoskeletal History: Reports: None Other Musculoskeletal History: Hx MS, lower extremities and his right side are weakest. Neurological History: Reports: MS Psychiatric History: Reports: Depression Endocrine/Metabolic History: Reports: Hypothyroidism Dermatologic History: Reports: Other (See Below) Other Dermatologic History: Had bed sore after hospitalization in [place] last year, is healed. - Infectious Disease History Infectious Disease History: Reports: Chicken Pox, Measles, Mumps - Past Surgical History HEENT Surgical History: Reports: Detached Retina, Oral Surgery Other HEENT Surgeries/Procedures: Tooth pulled. GI Surgical History: Reports: Colonoscopy, Hernia Repair/Other Neurological Surgical History: Reports: Other (See Below) Other Neurological Surgeries/Procedures: Neck surgery at base of neck, nerve canal. Musculoskeletal Surgical History: Reports: Arthroscopic Knee, Other (See Below) Other Musculoskeletal Surgeries/Procedures:: Right knee arthroscopic surgery. Social & Family History - Family History Family Medical History: Noncontributory - Tobacco Use Smoking Status *Q: Never Smoker Second Hand Smoke Exposure: No - Caffeine Use Caffeine Use: Reports: Soda - Recreational Drug Use Recreational Drug Use: No ED ROS GENERAL - Review of Systems Review Of Systems: See Below Constitutional: Reports: Fever, Decreased Appetite HEENT: Reports: No Symptoms Respiratory: Reports: Other (Fullness in chest) Cardiovascular: Reports: No Symptoms Endocrine: Reports: No Symptoms GI/Abdominal: Reports: Decreased Appetite, Nausea : Reports: Flank Pain, Other (catheter) Musculoskeletal: Reports: Back Pain Skin: Reports: Wound (Pressure ulcer on buttocks.) Neurological: Reports: Difficulty Walking, Weakness, Gait Disturbance Psychiatric: Reports: No Symptoms Hematologic/Lymphatic: Reports: No Symptoms Immunologic: Reports: No Symptoms ED EXAM, GENERAL - Physical Exam Exam: See Below Exam Limited By: No Limitations General Appearance: Alert, WD/WN, Mild Distress Eye Exam: Bilateral Eye: EOMI, Normal Fundi, Normal Inspection, PERRL Ears: Normal External Exam, Normal Canal, Hearing Grossly Normal, Normal TMs Ear Exam: Bilateral Ear: Auricle Normal, Canal Normal, TM normal Nose: Normal Inspection, Normal Mucosa, No Blood Throat/Mouth: Normal Inspection, Normal Lips, Normal Teeth, Normal Gums, Normal Oropharynx, Normal Voice, No Airway Compromise Head: Atraumatic, Normocephalic Neck: Normal Inspection, Supple, Non-Tender, Full Range of Motion Respiratory/Chest: No Accessory Muscle Use, Chest Non-Tender, Decreased Breath Sounds Cardiovascular: No Gallop, No JVD, No Murmur, No Rub GI/Abdominal: Normal Bowel Sounds, Soft, Non-Tender, No Organomegaly, No Distention, No Abnormal Bruit, No Mass Back Exam: CVA Tenderness (R), CVA Tenderness (L), Other (Low back pain.) Extremities: Non-Tender Neurological: Alert, Oriented, Normal Cognition, Sensory/Motor Deficit, Other ( In motorized wheelchair.) Psychiatric: Normal Affect, Normal Mood Lymphatic: No Adenopathy EKG INTERPRETATION EKG Date: 07/13/17 Rhythm: Other (Sinus tachycardia.) [place]: Normal P-Wave: Present QRS: Normal ST-T: Other (Borderline T abnormalities in inferior leads.) QT: Normal Course - Vital Signs Text/Narrative:: Patient had an elevated WBC and an apparent LLL pneumonia on chest x-ray. He also has a UTI and a large pressure ulcer on the upper buttocks along with a pressure ulcer on his scrotum that appear infected. All could be sources of infection. He was started on IV NS with 20 KCL at 125 ml per hour, he was given IV Levaquin 750 mg in the ED and daily. He was also given Zofran 4 mg IV in the ED. He will be admitted to the hospital for ongoing therapies and telemetry monitoring. He will have a Duoneb 1 unit dose q 8 hours. Patient is a DNR and he requested to be hospitalized here. Last Recorded V/S: Last Vital Signs Temp 37.3 C 07/13/17 22:35 Pulse 108 H 07/13/17 22:35 Resp 18 07/13/17 22:35 BP 138/84 07/13/17 22:35 Pulse Ox 89 L 07/13/17 22:35 - Orders/Labs/Meds Orders: Active Orders 24 hr Category Date Time Status EKG Documentation Completion [RC] ASDIRECTED Care 07/13/17 21:27 Active Oxygen Therapy, ED [RC] ASDIRECTED Care 07/13/17 21:23 Active CXR [Chest 1V Frontal] [CR] Stat Exams 07/13/17 21:25 Taken CULTURE BLOOD [BC] Urgent Lab 07/13/17 22:20 Received CULTURE BLOOD [BC] Urgent Lab 07/13/17 22:25 Received UA W/MICROSCOPIC [URIN] Stat Lab 07/13/17 23:25 Ordered Blood Culture x2 Reflex Set [OM.PC] Urgent Oth 07/13/17 21:57 Ordered EKG 12 Lead [EK] Routine Ther 07/13/17 21:26 Ordered Medication Orders Albuterol/Ipratropium (Duoneb 3.0-0.5 Mg/3 Ml) 3 ml NEB Q8H LUIS FERNANDO Last Admin: 07/13/17 23:07 Dose: 3 ml Potassium Chloride/Sodium Chloride (Normal Saline With 20 Meq Kcl) 1,000 mls @ 125 mls/hr IV ASDIRECTED [facility] Last Admin: 07/13/17 23:11 Dose: 125 mls/hr Levofloxacin/Dextrose 750 mg/ (Premix) 150 mls @ 100 mls/hr IV Q24H LUIS FERNANDO Last Admin: 07/13/17 23:15 Dose: 100 mls/hr Ondansetron HCl (Zofran) 4 mg IVPUSH Q4H PRN PRN Reason: Nausea/Vomiting Last Admin: 07/13/17 23:22 Dose: 4 mg Labs: Laboratory Tests 07/13/17 07/13/17 07/13/17 Range/Units 21:25 21:40 21:40 WBC 17.3 H (4.5-12.0) X10-3/uL RBC 5.98 H (4.30-5.75) x10(6)uL Hgb 16.8 H (11.5-15.5) g/dL Hct 50.9 (30.0-51.3) % MCV 85.2 (80-96) fL MCH 28.0 (27.7-33.6) pg MCHC 32.9 (32.2-35.4) g/dL RDW 17.6 H (11.5-15.5) % Plt Count 303 (125-369) X10(3)uL MPV 6.9 L (7.4-10.4) fL Neut % (Auto) 85.9 H (46-82) % Lymph % (Auto) 6.4 L (13-37) % Prentiss % (Auto) 4.4 (4-12) % Eos % (Auto) 0 L (1.0-5.0) % Baso % (Auto) 3 H (0-2) % Neut # (Auto) 14.8 H (1.6-8.3) # Lymph # (Auto) 1.1 (0.6-5.0) # Prentiss # (Auto) 0.8 (0.0-1.3) # Eos # (Auto) 0.0 (0.0-0.8) # Baso # (Auto) 0.6 H (0.0-0.2) # PT 17.9 H (8.7-11.1) INR 1.75 H (0.89-1.13) Sodium 139 (135-145) mmol/L Potassium 3.1 L (3.5-5.3) mmol/L Chloride 96 L (100-110) mmol/L Carbon Dioxide 30 H (23-29) mmol/L BUN 16 D (8-23) mg/dL Creatinine 1.0 (0.6-1.3) mg/dL Est Cr Clr Drug Dosing TNP Estimated GFR (MDRD) > 60 (>60) BUN/Creatinine Ratio 16.0 (9-20) Glucose 187 H (80-116) mg/dL Calcium 9.8 (8.6-10.2) mg/dL Total Bilirubin 1.2 (0.1-1.3) mg/dL AST 21 (5-27) IU/L ALT 28 H D (14-26) IU/L Alkaline Phosphatase 88 (56-112) IU/L Troponin I (0.02-0.06) NG/ML Total Protein 8.6 H (6.0-8.0) g/dL Albumin 4.2 (3.2-4.6) g/dL Globulin 4.4 g/dL Albumin/Globulin Ratio 1.0 // Range/Units 21:40 WBC (4.5-12.0) X10-3/uL RBC (4.30-5.75) x10(6)uL Hgb (11.5-15.5) g/dL Hct (30.0-51.3) % MCV (80-96) fL MCH (27.7-33.6) pg MCHC (32.2-35.4) g/dL RDW (11.5-15.5) % Plt Count (125-369) X10(3)uL MPV (7.4-10.4) fL Neut % (Auto) (46-82) % Lymph % (Auto) (13-37) % Prentiss % (Auto) (4-12) % Eos % (Auto) (1.0-5.0) % Baso % (Auto) (0-2) % Neut # (Auto) (1.6-8.3) # Lymph # (Auto) (0.6-5.0) # Prentiss # (Auto) (0.0-1.3) # Eos # (Auto) (0.0-0.8) # Baso # (Auto) (0.0-0.2) # PT (8.7-11.1) INR (0.89-1.13) Sodium (135-145) mmol/L Potassium (3.5-5.3) mmol/L Chloride (100-110) mmol/L Carbon Dioxide (23-29) mmol/L BUN (8-23) mg/dL Creatinine (0.6-1.3) mg/dL Est Cr Clr Drug Dosing Estimated GFR (MDRD) (>60) BUN/Creatinine Ratio (9-20) Glucose (80-116) mg/dL Calcium (8.6-10.2) mg/dL Total Bilirubin (0.1-1.3) mg/dL AST (5-27) IU/L ALT (14-26) IU/L Alkaline Phosphatase (56-112) IU/L Troponin I < 0.01 L (0.02-0.06) NG/ML Total Protein (6.0-8.0) g/dL Albumin (3.2-4.6) g/dL Globulin g/dL Albumin/Globulin Ratio Meds: Medications Generic Name Dose Route Start Last Admin Trade Name Freq PRN Reason Stop Dose Admin Albuterol/Ipratropium 3 ml 07/13/17 23:00 07/13/17 23:07 Duoneb 3.0-0.5 Mg/3 Ml NEB 3 ml Q8H LUIS FERNANDO Administration Potassium Chloride/Sodium Chloride 1,000 mls @ 125 mls/hr 07/13/17 23:00 23:11 Normal Saline With 20 Meq Kcl IV 125 mls/hr ASDIRECTED LUIS FERNANDO Administration Levofloxacin/Dextrose 750 mg/ 150 mls @ 100 mls/hr 07/13/17 23:00 07/13/17 23 :15 Premix IV 100 mls/hr Q24H LUIS FERNANDO Administration Ondansetron HCl 4 mg 07/13/17 23:08 07/13/17 23:22 Zofran IVPUSH 4 mg Q4H PRN Administration Nausea/Vomiting Discontinued Medications Generic Name Dose Route Start Last Admin Trade Name Freq PRN Reason Stop Dose Admin Levofloxacin/Dextrose Confirm 07/13/17 23:01 07/13/17 23:07 Levaquin In D5w 750 Mg/150 Ml Administered 07/13/17 23:02 Not Given Dose 150 mls @ as directed IV .STK-MED ONE Levofloxacin/Dextrose Confirm 07/13/17 23:14 07/13/17 23:30 Levaquin In D5w 750 Mg/150 Ml Administered 07/13/17 23:15 Not Given Dose 150 mls @ as directed IV .STK-MED ONE Departure - Departure Time of Disposition: 23:45 Disposition: Admitted As Inpatient 68 Condition: Fair Clinical Impression: Pneumonia, UTI (urinary tract infection), Pressure ulcer - Discharge Information - My Orders Last 24 Hours: My Active Orders 07/13/17 21:23 Oxygen Therapy, ED [RC] ASDIRECTED 07/13/17 21:25 CXR [Chest 1V Frontal] [CR] Stat 07/13/17 21:26 EKG 12 Lead [EK] Routine 07/13/17 21:27 EKG Documentation Completion [RC] ASDIRECTED 07/13/17 21:57 Blood Culture x2 Reflex Set [OM.PC] Urgent 07/13/17 22:20 CULTURE BLOOD [BC] Urgent 07/13/17 22:25 CULTURE BLOOD [BC] Urgent 07/13/17 23:25 UA W/MICROSCOPIC [URIN] Stat - Assessment/Plan Last 24 Hours: My Active Orders 07/13/17 21:23 Oxygen Therapy, ED [RC] ASDIRECTED 07/13/17 21:25 CXR [Chest 1V Frontal] [CR] Stat 07/13/17 21:26 EKG 12 Lead [EK] Routine 07/13/17 21:27 EKG Documentation Completion [RC] ASDIRECTED 07/13/17 21:57 Blood Culture x2 Reflex Set [OM.PC] Urgent 07/13/17 22:20 CULTURE BLOOD [BC] Urgent 07/13/17 22:25 CULTURE BLOOD [BC] Urgent 07/13/17 23:25 UA W/MICROSCOPIC [URIN] Stat
[2017-07-14] MEDS: Albuterol/Ipratropium 3.0-0.5 MG/3 ML Neb Soln NEB SCH ×3 (07:10→22:47)
[2017-07-14] MEDS ORDERED: AMINOPYRIDINE PO SCH (08:00)
[2017-07-14] MEDS ORDERED: NS + KCl 20mEq/L 1,000 ML IV SCH (08:15)
[2017-07-14] MEDS ORDERED: Diazepam 10 MG Tab PO PRN (08:38)
[2017-07-14] MEDS ORDERED: Acetaminophen/HYDROcodone 325-5 MG Tab PO PRN (08:38)
--- NOTE | 2017-07-14 08:46 | PCM.HP ---
H&P History of Present Illness - General Date of Service: 07/14/17 Admit Problem/Dx: Admission Diagnosis/Problem Admission Diagnosis/Problem Pneumonia involving left lung Source of Information: Patient History Limitations: Reports: No Limitations - History of Present Illness Initial Comments - Free Text/Narative: 67-year-old male with multiple sclerosis brought in because of back pain, hypoxia lethargy and abdominal distention. Went to the walk-in clinic and found to have oxygen saturation of 80%. He complains of nausea ,but no vomiting or constipation.He has myalgias and back pain ,this started yesterday, fairly suddenly. He also feels warm but denies chiils,rigors. He is typically wheelchair bound and has a neurogenic bladder with chronic indwelling catheter. Upon admission was noted, white count of 17,000, his abdomen was markedly distended but nontender, but a bladder scan revealed Motrin 800 mL of urine. The catheter was changed and his symptoms somewhat improved. He denies any fever or chills neither does he have any cough headache chest pain. Abdomen Pain Score (Numeric/FACES): 5 - Related Data Allergies/Adverse Reactions: Allergies Allergy/AdvReac Type Severity Reaction Status Date / Time mold Allergy Sneezing Verified 07/13/17 21:31 Penicillins Allergy Rash Verified 07/13/17 21:31 Home Medications: Home Meds Gabapentin [Neurontin] 300 mg PO BEDTIME 12/31/13 [History] Levothyroxine Sodium [Synthroid] 225 mcg PO DAILY@152912/31/13 [History] Omeprazole [priLOSEC OTC] 20 mg PO DAILY@152912/31/13 [History] Sertraline [Zoloft] 100 mg PO DAILY@152912/31/13 [History] tiZANidine [Zanaflex] 4 mg PO BEDTIME 12/31/13 [History] Cyanocobalamin (Vitamin B12) [Vitamin B12] 250 mcg PO DAILY 06/29/16 [History] Diazepam 10 mg PO TID PRN 06/29/16 [History] Docusate Sodium 100 mg PO BID 06/29/16 [History] Furosemide 80 mg PO BID@08,12 06/29/16 [History] Hydrocodone/Acetaminophen [Hydrocodon-Acetaminophen 5-325] 1 tab PO Q6H PRN 11/13 [History] Tamsulosin [Flomax] 0.4 mg PO DAILY 06/29/16 [History] Warfarin [Coumadin] 2.5 mg PO MOWEFR@1600 06/29/16 [History] Warfarin [Coumadin] 5 mg PO SUTUTHSA@1600 06/29/16 [History] Cholecalciferol (Vitamin D3) [Vitamin D3] 2,000 unit PO DAILY 04/11/17 [History] Metolazone 2.5 mg PO FR 04/11/17 [History] Potassium Chloride [Klor-Con M20] 20 meq PO BID #60 tab.er 04/12/17 [Rx] .Aminopyridine 20 mg PO 0800,1200,1800 07/13/17 [History] Baclofen [Baclofen] 30 mg PO 0800 07/13/17 [History] Baclofen [Baclofen] 40 mg PO 1500,2030 07/13/17 [History] Past Medical History HEENT History: Reports: Impaired Vision, Other (See Below) Other HEENT History: Detached retina 1979. Cardiovascular History: Reports: Blood Clots/VTE/DVT Respiratory History: Reports: None Gastrointestinal History: Reports: GERD Genitourinary History: Reports: Other (See Below) Other Genitourinary History: Indwelling estevez, urethral. Musculoskeletal History: Reports: None Other Musculoskeletal History: Hx MS, lower extremities and his right side are weakest. Neurological History: Reports: MS Other Neuro History: is confined to wheelchair and use lift and sling to put patient to bed. Psychiatric History: Reports: Depression Endocrine/Metabolic History: Reports: Hypothyroidism Hematologic History: Reports: None Immunologic History: Reports: None Oncologic (Cancer) History: Reports: None Dermatologic History: Reports: Other (See Below) Other Dermatologic History: Had bed sore after hospitalization in [place] last year, is healed. - Infectious Disease History Infectious Disease History: Reports: Chicken Pox, Measles, Mumps - Past Surgical History HEENT Surgical History: Reports: Detached Retina, Oral Surgery Other HEENT Surgeries/Procedures: Tooth pulled. GI Surgical History: Reports: Colonoscopy, Hernia Repair/Other Neurological Surgical History: Reports: Other (See Below) Other Neurological Surgeries/Procedures: Neck surgery at base of neck, nerve canal. Musculoskeletal Surgical History: Reports: Arthroscopic Knee, Other (See Below) Other Musculoskeletal Surgeries/Procedures:: Right knee arthroscopic surgery. Social & Family History - Family History Family Medical History: Noncontributory - Tobacco Use Smoking Status *Q: Never Smoker Second Hand Smoke Exposure: No - Caffeine Use Caffeine Use: Reports: Soda - Recreational Drug Use Recreational Drug Use: No H&P Review of Systems - Review of Systems: Review Of Systems: ROS reveals no pertinent complaints other than HPI. Exam - Exam Exam: See Below - Vital Signs Vital Signs: Last Vital Signs Temp 99.5 F 07/14/17 04:00 Pulse 99 07/14/17 04:00 Resp 20 07/14/17 04:00 BP 115/81 07/14/17 04:00 Pulse Ox 90 L 07/14/17 04:00 Weight: 121.88 kg - Exam Quality Assessment: Supplemental Oxygen General: Alert, Oriented, 4 HEENT: PERRLA, Hearing Intact, Mucosa Moist & [place], Nares Patent, Normal Nasal Septum, Posterior Pharynx Clear, Conjunctiva Clear, EOMI, EACs Clear, TMs Clear Neck: Supple, Trachea Midline, 2 Lungs: Clear to Auscultation, Normal Respiratory Effort Cardiovascular: Regular Rate, Regular Rhythm GI/Abdominal Exam: Soft, Distended. No: No Distention, Guarding, Rebound, Tender, Mass (Male) Exam: Deferred Rectal (Males) Exam: Deferred Back Exam: Other (Decubitus ulcer) Extremities: No: No Pedal Edema, Leg Pain Skin: Warm, Dry, Intact Neurological: Focal Deficit Neuro Extensive - Mental Status: Alert, Oriented x3 Psychiatric: Depressed - Patient Data Lab Results Last 24 hrs: Laboratory Results - last 24 hr 07/13/17 Range/Units 23:25 Urine Color Yellow (YELLOW) Urine Appearance Slightly cloudy (CLEAR) Urine pH 6.0 (5.0-6.5) Ur Specific [place] 1.010 (1.010-1.025) Urine Protein Negative (NEGATIVE) mg/dL Urine Glucose (UA) Normal (NEGATIVE) mg/dL Urine Ketones Negative (NEGATIVE) mg/dL Urine Occult Blood Large H (NEGATIVE) Urine Nitrite Negative (NEGATIVE) Urine Bilirubin Negative (NEGATIVE) Urine Urobilinogen Normal (NEGATIVE) mg/dL Ur Leukocyte Esterase Moderate H (NEGATIVE) Urine RBC 20-30 H (0) Urine WBC 5-10 (0) Ur Squamous Epith Cells Few H (NS,R,O) Urine Bacteria Many H (NS) Result Diagrams: 07/13/17 21:40 07/13/17 21:40 *Q Meaningful Use (ADM) - VTE *Q VTE Criteria *Q: - Stroke *Q Stroke Criteria *Q: - AMI *Q AMI Criteria *Q: - Problem List (1) Pressure ulcer SNOMED Code(s): 480706646 ICD Code: L89.90 - PRESSURE ULCER OF UNSPECIFIED SITE, UNSPECIFIED STAGE Status: Acute Current Visit: Yes Qualifiers: Pressure ulcer location: sacral region (2) UTI (urinary tract infection) SNOMED Code(s): 34118117 ICD Code: N39.0 - URINARY TRACT INFECTION, SITE NOT SPECIFIED Status: Acute Current Visit: Yes Qualifiers: Urinary tract infection type: catheter-associated UTI (3) Multiple sclerosis SNOMED Code(s): 91332276 ICD Code: G35 - MULTIPLE SCLEROSIS Status: Chronic Current Visit: No (4) Neurogenic dysfunction of the urinary bladder SNOMED Code(s): 853579041 ICD Code: N31.9 - NEUROMUSCULAR DYSFUNCTION OF BLADDER, UNSPECIFIED Status : Acute Current Visit: No (5) 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 SNOMED Code(s): 915900629 ICD Code: I82.403 - ACUTE EMBOLISM AND THOMBOS UNSP DEEP VEINS OF LOW EXTRM, BI Status: Chronic Current Visit: No (6) Urinary retention SNOMED Code(s): 478957881 ICD Code: R33.9 - RETENTION OF URINE, UNSPECIFIED Status: Acute Current Visit: Yes (7) Hypokalemia SNOMED Code(s): 34794311 ICD Code: E87.6 - HYPOKALEMIA Status: Acute Current Visit: Yes (8) Long-term (current) use of anticoagulants SNOMED Code(s): 492585323 ICD Code: Z79.01 - SKILLED NURSING (CURRENT) USE OF ANTICOAGULANTS Status: Acute Current Visit: Yes Problem List Initiated/Reviewed/Updated: Yes Orders Last 24hrs: Active Orders 24 hr Category Date Time Status Estevez Catheter Insertion [Insert Urinary Catheter] [OM. Care 07/14/17 06:40 Ordered PC] Q24H Oxygen Therapy Adult [Oxygen Therapy, ED] [RC] Care 07/13/17 23:45 Active ASDIRECTED RT Aerosol Therapy [RC] ASDIRECTED Care 07/13/17 22:54 Active Telemetry Monitoring [Cardiac Monitoring] [RC] .As Care 07/13/17 22:46 Active Directed Urinary Catheter Assessment [RC] QSHIFT Care 07/14/17 07:57 Active B-TYPE NATRIURETIC PEPTIDE,BNP [CHEM] AM Lab 07/15/17 05:11 Ordered BASIC METABOLIC PANEL,BMP [CHEM] AM Lab 07/15/17 05:11 Ordered CBC WITH AUTO DIFF [HEME] AM Lab 07/15/17 05:11 Ordered CULTURE URINE [RM] Routine Lab 07/13/17 23:25 Ordered .Aminopyridine Med 07/14/17 12:00 Ordered 20 mg PO 0800,1200,1800 Acetaminophen/HYDROcodone [Anatone 325-5 MG] Med 07/14/17 08:38 Ordered 1 tab PO Q6H PRN Albuterol/Ipratropium [DuoNeb 3.0-0.5 MG/3 ML] Med 07/13/17 23:00 Active 3 ml NEB Q8H Baclofen [Baclofen] Med 07/15/17 08:00 Ordered 30 mg PO 0800 Baclofen [Baclofen] Med 07/14/17 15:00 Ordered 40 mg PO 1500,2030 Cholecalciferol (Vitamin D3) [Vitamin D3] Med 07/14/17 09:00 Ordered 2,000 unit PO DAILY Cyanocobalamin (Vitamin B12) [Vitamin B12] Med 07/14/17 09:00 Ordered 250 mcg PO DAILY Diazepam [Valium] Med 07/14/17 08:38 Ordered 10 mg PO TID PRN Docusate Sodium [Colace] Med 07/14/17 09:00 Ordered 100 mg PO BID Furosemide [Lasix] Med 07/14/17 12:00 Ordered 80 mg PO BID@08,12 Gabapentin [Neurontin] Med 07/14/17 21:00 Ordered 300 mg PO BEDTIME Levofloxacin/Dextrose 5%-Water [Levaquin in D5W 750 MG/ Med 07/13/17 23:00 Active 150 ML] 750 mg Premix Bag 1 bag IV Q24H Levothyroxine Med 07/14/17 15:30 Ordered 225 mcg PO DAILY@1530 Metolazone [Zaroxolyn] Med 07/20/17 08:38 Ordered 2.5 mg PO FR Omeprazole [priLOSEC OTC] Med 07/14/17 15:30 Ordered 20 mg PO DAILY@1530 Ondansetron [Zofran] Med 07/13/17 23:08 Active 4 mg IVPUSH Q4H PRN Pneumococcal Polyvalent-23 Vac [Pneumovax 23] Med 07/14/17 09:00 Once 0.5 ml SUBCUT .ONCE ONE Potassium Chloride [Klor-Con M20] Med 07/14/17 09:00 Ordered 20 meq PO BID Sertraline [Zoloft] Med 07/14/17 15:30 Ordered 100 mg PO DAILY@1530 Tamsulosin [Flomax] Med 07/14/17 09:00 Ordered 0.4 mg PO DAILY Warfarin [Coumadin] Med 07/16/17 16:00 Ordered 2.5 mg PO MOWEFR@1600 Warfarin [Coumadin] Med 07/14/17 16:00 Ordered 5 mg PO SUTUTHSA@1600 tiZANidine [Zanaflex] Med 07/14/17 21:00 Ordered 4 mg PO BEDTIME Medication Orders Hydrocodone Bitart/Acetaminophen (Anatone 325-5 Mg) 1 tab PO Q6H PRN PRN Reason: Pain Albuterol/Ipratropium (Duoneb 3.0-0.5 Mg/3 Ml) 3 ml NEB Q8H [facility] Last Admin: 07/14/17 07:10 Dose: 3 ml Admin: 07/13/17 23:07 Dose: 3 ml Diazepam (Valium) 10 mg PO TID PRN PRN Reason: Spasms Docusate Sodium (Colace) 100 mg PO BID [facility] Furosemide (Lasix) 80 mg PO BID@08,12 [facility] Gabapentin (Neurontin) 300 mg PO BEDTIME LUIS FERNANDO Levofloxacin/Dextrose 750 mg/ (Premix) 150 mls @ 100 mls/hr IV Q24H [facility] Last Admin: 07/13/17 23:15 Dose: 100 mls/hr Levothyroxine Sodium (Levothyroxine) 225 mcg PO DAILY@1530 [facility] Metolazone (Zaroxolyn) 2.5 mg PO FR [facility] Non-Formulary Medication (.Aminopyridine) 20 mg PO 0800,1200,1800 [facility] Non-Formulary Medication (Baclofen [Baclofen]) 30 mg PO 0800 [facility] Non-Formulary Medication (Baclofen [Baclofen]) 40 mg PO 1500,2030 [facility] Non-Formulary Medication (Cholecalciferol (Vitamin D3) [Vitamin D3]) 2,000 unit PO DAILY [facility] Non-Formulary Medication (Cyanocobalamin (Vitamin B12) [Vitamin B12]) 250 mcg PO DAILY [facility] Non-Formulary Medication (Omeprazole [Prilosec Otc]) 20 mg PO DAILY@1530 [facility] Ondansetron HCl (Zofran) 4 mg IVPUSH Q4H PRN PRN Reason: Nausea/Vomiting Last Admin: 07/13/17 23:22 Dose: 4 mg Pneumococcal Polyvalent Vaccine (Pneumovax 23) 0.5 ml SUBCUT .ONCE ONE Stop: 07/14/17 09:01 Potassium Chloride (Klor-Con M20) 20 meq PO BID [facility] Sertraline HCl (Zoloft) 100 mg PO DAILY@1530 [facility] Tamsulosin HCl (Flomax) 0.4 mg PO DAILY [facility] Tizanidine HCl (Zanaflex) 4 mg PO BEDTIME [facility] Warfarin Sodium (Coumadin) 2.5 mg PO MOWEFR@1600 [facility] Warfarin Sodium (Coumadin) 5 mg PO SUTUTHSA@1600 [facility] Assessment/Plan Comment:: I independently reviewed the x-ray did not show any acute process.He has a large uterine hernia. I'll obtain flat and upright of his abdomen to check for gaseous distention or ileus. I'll replace his potassium by oral potassium chloride. I'll discontinue the IV fluids because of edema. Legs and scrotum. I' ll consult Dr. Lilly for the decubitus ulcer as well as physical therapy. I agree with Levaquin 750 mg IV daily.
[2017-07-14] MEDS: Sodium Chloride 0.9% 10 ML Syringe FLUSH PRN ×3 (08:50→22:25)
[2017-07-14] MEDS ORDERED: Furosemide 40 MG/4 ML VIAL IVPUSH ONE (08:53)
[2017-07-14] MEDS ORDERED: Pneumococcal Polyvalent-23 Vaccine 0.5 ML SDV SUBCUT ONE (09:00)
[2017-07-14] MEDS: Docusate Sodium 100 MG Cap PO SCH ×2 (09:53→20:27)
[2017-07-14] MEDS: Baclofen 10 MG Tab PO SCH ×3 (09:53→22:31)
[2017-07-14] MEDS: Tamsulosin 0.4 MG Cap.ER PO SCH (09:53)
[2017-07-14] MEDS: Potassium Chloride 20 MEQ Tab.ER PO SCH ×2 (09:54→20:27)
[2017-07-14] MEDS: Cholecalciferol (Vitamin D3) 1,000 Unit Tab PO SCH (09:55)
[2017-07-14] MEDS: Cyanocobalamin (Vitamin B12) 500 MCG Tab PO SCH ×2 (10:00→10:02)
--- NOTE | 2017-07-14 10:48 | PCM.SN ---
- Free Text/Narrative Note: consult dictated decubitus ulcer does not appear infected. would continue the treatment plan outlined by wound clinic which consists of wet to dry dressing changes. odds of healing are quite low given his hx of MS and his wheelchair bound status.
[2017-07-14] MEDS: Furosemide 80 MG Tab PO SCH (12:34)
[2017-07-14] MEDS: AMINOPYRIDINE PO SCH ×2 (12:34→18:19)
--- NOTE | 2017-07-14 14:53 | CONS ---
DATE OF CONSULTATION: 07/14/2017 REASON FOR CONSULTATION: Decubitus ulcer. HISTORY OF PRESENT ILLNESS: This is a 67-year-old white male, who was admitted last evening via the emergency room where he was referred from the walk-in clinic. They noted him to be tachycardic and he had an O2 saturation in the lower 80s. He also had some low-grade fevers and complaining of some back to his mid lower back pain, as well as some abdominal distention. He has a history of multiple sclerosis, which makes him wheelchair-bound. He has neurogenic bladder and an indwelling urinary catheter. He has a sacral decubitus ulcer, which has been chronic. Apparently, been treated by the [facility] in [place] with wet-to-dry dressing changes and according to the patient has been healed, but recently opened up again. I was asked to evaluate the decubitus and make recommendations. ALLERGIES: The patient has allergies to mold and penicillin. PAST MEDICAL HISTORY: Significant for detached retina, history of DVTs, gastroesophageal reflux disease, neurogenic bladder with indwelling [place], history of MS with lower extremity and right-sided weakness, depression, hypothyroidism, and bedsores. PAST SURGICAL HISTORY: Significant for surgery for detached retina, tooth extraction, colonoscopy, hernia repair, neck surgery, and knee arthroscopy. FAMILY HISTORY: Noncontributory. The patient has never smoked. Does drink caffeine. REVIEW OF SYSTEMS: Essentially noncontributory with regard to this problem. MEDICATIONS: At the time of evaluation include acetaminophen hydrocodone, albuterol inhalers, baclofen p.o., vitamin D, vitamin B12, Valium, Colace, Lasix, gabapentin, and levothyroxine. PHYSICAL EXAMINATION: GENERAL: This is a well-developed obese male in bed, appearing in no acute distress. VITAL SIGNS: Pulse rate was 90, O2 sats were 91, blood pressure was 115/81, with respiratory rate of 20. SKIN: Examination of the decubitus reveals a chevron shaped wound approximately 3 x 5 cm in greatest length with a 5 cm arm being on the right side. The width is approximately 1 cm. This is full thickness through the skin. He has what appears to be granulation tissue at the base. I see no evidence of purulence or infection. ASSESSMENT: Decubitus ulcer. Current wound treatment appears to be adequate. The patient does have a leukocytosis as noted on lab work. I do not believe that this is the cause of his infection, but probably more related to some pulmonary issues/urinary tract issues, which are documented in the H and P. RECOMMENDATIONS: Recommendation would be to continue wet-to-dry dressing changes. /[id number] /MODL
[2017-07-14] MEDS: Sertraline 100 MG Tab PO SCH (15:00)
[2017-07-14] MEDS: Levothyroxine 75 MCG Tab PO SCH (15:00)
[2017-07-14] MEDS: Pantoprazole 40 MG Tab.CR PO SCH (15:00)
[2017-07-14] MEDS: Levothyroxine 150 MCG Tab PO SCH (15:00)
[2017-07-14] MEDS: Warfarin 5 MG Tab PO SCH (16:27)
[2017-07-14] MEDS: tiZANidine 4 MG Tab PO SCH (20:27)
[2017-07-14] MEDS: Gabapentin 300 MG Cap PO SCH (20:27)
[2017-07-14] MEDS: Sodium Chloride 0.9% 250 ML IV SCH (22:26)
[2017-07-14] MEDS: Levofloxacin/Dextrose 5%-Water 750 MG in Premix Bag 1 BAG IV SCH (22:26)
[2017-07-15] MEDS: Albuterol/Ipratropium 3.0-0.5 MG/3 ML Neb Soln NEB SCH ×3 (07:08→22:36)
--- NOTE | 2017-07-15 07:53 | PCM.PN ---
- General Info Date of Service: 07/15/17 Functional Status: Reports: Pain Controlled, Tolerating Diet - Review of Systems General: Reports: Weakness HEENT: Reports: No Symptoms Pulmonary: Reports: No Symptoms, Shortness of Breath Cardiovascular: Reports: No Symptoms Gastrointestinal: Reports: No Symptoms Genitourinary: Reports: No Symptoms Musculoskeletal: Reports: Back Pain - Patient Data Vitals - Most Recent: Last Vital Signs Temp 97.5 F 07/15/17 00:30 Pulse 78 07/15/17 07:30 Resp 18 07/15/17 00:30 BP 94/57 L 07/15/17 00:30 Pulse Ox 92 L 07/15/17 07:30 Weight - Most Recent: 121.88 kg I&O - Last 24 Hours: Intake & Output 07/14/17 07/15/17 07/15/17 22:59 06:59 14:59 Intake Total 240 Output Total 1500 650 Balance -1260 -650 Lab Results Last 24 Hours: Laboratory Results - last 24 hr 07/15/17 07/15/17 07/15/17 Range/Units 06:35 06:35 06:35 WBC 12.2 H (4.5-12.0) X10-3/uL RBC 4.97 (4.30-5.75) x10(6)uL Hgb 14.3 (11.5-15.5) g/dL Hct 42.6 (30.0-51.3) % MCV 85.7 (80-96) fL MCH 28.7 (27.7-33.6) pg MCHC 33.5 (32.2-35.4) g/dL RDW 16.8 H (11.5-15.5) % Plt Count 296 (125-369) X10(3)uL MPV 7.0 L (7.4-10.4) fL Neut % (Auto) 73.7 (46-82) % Lymph % (Auto) 13.9 (13-37) % [place] % (Auto) 6.3 (4-12) % Eos % (Auto) 2 (1.0-5.0) % Baso % (Auto) 4 H (0-2) % Neut # (Auto) 8.9 H (1.6-8.3) # Lymph # (Auto) 1.7 (0.6-5.0) # [place] # (Auto) 0.8 (0.0-1.3) # Eos # (Auto) 0.3 (0.0-0.8) # Baso # (Auto) 0.5 H (0.0-0.2) # PT (8.7-11.1) INR (0.89-1.13) Sodium 138 (135-145) mmol/L Potassium 2.6 L* (3.5-5.3) mmol/L Chloride 94 L (100-110) mmol/L Carbon Dioxide 37 H (23-29) mmol/L BUN 22 (8-23) mg/dL Creatinine 1.1 (0.6-1.3) mg/dL Est Cr Clr Drug Dosing 73.48 mL/min Estimated GFR (MDRD) > 60 (>60) BUN/Creatinine Ratio 20.0 (9-20) Glucose 128 H (80-116) mg/dL Calcium 9.4 (8.6-10.2) mg/dL B-Natriuretic Peptide 28 (0-100) pg/mL 07/15/17 Range/Units 06:35 WBC (4.5-12.0) X10-3/uL RBC (4.30-5.75) x10(6)uL Hgb (11.5-15.5) g/dL Hct (30.0-51.3) % MCV (80-96) fL MCH (27.7-33.6) pg MCHC (32.2-35.4) g/dL RDW (11.5-15.5) % Plt Count (125-369) X10(3)uL MPV (7.4-10.4) fL Neut % (Auto) (46-82) % Lymph % (Auto) (13-37) % [place] % (Auto) (4-12) % Eos % (Auto) (1.0-5.0) % Baso % (Auto) (0-2) % Neut # (Auto) (1.6-8.3) # Lymph # (Auto) (0.6-5.0) # [place] # (Auto) (0.0-1.3) # Eos # (Auto) (0.0-0.8) # Baso # (Auto) (0.0-0.2) # PT 19.5 H (8.7-11.1) INR 1.90 H (0.89-1.13) Sodium (135-145) mmol/L Potassium (3.5-5.3) mmol/L Chloride (100-110) mmol/L Carbon Dioxide (23-29) mmol/L BUN (8-23) mg/dL Creatinine (0.6-1.3) mg/dL Est Cr Clr Drug Dosing mL/min Estimated GFR (MDRD) (>60) BUN/Creatinine Ratio (9-20) Glucose (80-116) mg/dL Calcium (8.6-10.2) mg/dL B-Natriuretic Peptide (0-100) pg/mL Jak Results Last 24 Hours: Microbiology 07/13/17 23:25 Urine Culture - Preliminary Urine, Voided Gram Negative Rods Med Orders - Current: Current Medications Hydrocodone Bitart/Acetaminophen ([place] 325-5 Mg) 1 tab PO Q6H PRN PRN Reason: Pain Albuterol/Ipratropium (Duoneb 3.0-0.5 Mg/3 Ml) 3 ml NEB Q8H [facility] Last Admin: 07/15/17 07:08 Dose: 3 ml Baclofen (Lioresal) 30 mg PO 0800 [facility] Last Admin: 07/14/17 09:53 Dose: 30 mg Baclofen (Lioresal) 40 mg PO 1500,2030 [facility] Last Admin: 07/14/17 22:31 Dose: 40 mg Cholecalciferol (Vitamin D3) 2,000 units PO DAILY [facility] Last Admin: 07/14/17 09:55 Dose: 2,000 units Cyanocobalamin (Vitamin B12) 250 mcg PO DAILY [facility] Last Admin: 07/14/17 10:02 Dose: Not Given Diazepam (Valium) 10 mg PO TID PRN PRN Reason: Spasms Docusate Sodium (Colace) 100 mg PO BID [facility] Last Admin: 07/14/17 20:27 Dose: 100 mg Furosemide (Lasix) 80 mg PO BID@0800,1200 [facility] Last Admin: 07/14/17 12:34 Dose: 80 mg Gabapentin (Neurontin) 300 mg PO BEDTIME [facility] Last Admin: 07/14/17 20:27 Dose: 300 mg Levofloxacin/Dextrose 750 mg/ (Premix) 150 mls @ 100 mls/hr IV Q24H [facility] Last Admin: 07/14/17 22:26 Dose: 100 mls/hr Sodium Chloride (Normal Saline) 250 mls @ 100 mls/hr IV ASDIRECTED [facility] Last Admin: 07/14/17 22:26 Dose: 100 mls/hr Potassium Chloride 10 meq/ (Premix) 100 mls @ 100 mls/hr IV Q4H [facility] Levothyroxine Sodium (Levothyroxine) 150 mcg PO DAILY@1530 [facility] Last Admin: 07/14/17 15:00 Dose: 150 mcg Levothyroxine Sodium (Levothyroxine) 75 mcg PO DAILY@1530 [facility] Last Admin: 07/14/17 15:00 Dose: 75 mcg Metolazone (Zaroxolyn) 2.5 mg PO FR [facility] Aminopyridine Pt (Own Med) 10 mg PO 0800,1200,1800 [facility] Last Admin: 07/14/17 18:19 Dose: 10 mg (Tinactin Pwd 0 Applic)Own Med* 0 applic TOP BID PRN PRN Reason: Rash Last Admin: 07/14/17 21:08 Dose: 1 applic Ondansetron HCl (Zofran) 4 mg IVPUSH Q4H PRN PRN Reason: Nausea/Vomiting Last Admin: 07/13/17 23:22 Dose: 4 mg Pantoprazole Sodium (Protonix) 40 mg PO DAILY@1530 [facility] Last Admin: 07/14/17 15:00 Dose: 40 mg Potassium Chloride (Klor-Con M20) 20 meq PO BID [facility] Last Admin: 07/14/17 20:27 Dose: 20 meq Potassium Chloride (Klor-Con M20) 40 meq PO TID [facility] Sertraline HCl (Zoloft) 100 mg PO DAILY@1530 [facility] Last Admin: 07/14/17 15:00 Dose: 100 mg Sodium Chloride (Saline Flush) 10 ml FLUSH ASDIRECTED PRN PRN Reason: flush med Last Admin: 07/14/17 22:25 Dose: 10 ml Tamsulosin HCl (Flomax) 0.4 mg PO DAILY [facility] Last Admin: 07/14/17 09:53 Dose: 0.4 mg Tizanidine HCl (Zanaflex) 4 mg PO BEDTIME [facility] Last Admin: 07/14/17 20:27 Dose: 4 mg Warfarin Sodium (Coumadin) 2.5 mg PO MoWeFr@1600 [facility] Warfarin Sodium (Coumadin) 5 mg PO SUTUTHSA@1600 [facility] Last Admin: 07/14/17 16:27 Dose: 5 mg Discontinued Medications Furosemide (Lasix) 40 mg IVPUSH NOW ONE Stop: 07/14/17 08:54 Last Admin: 07/14/17 09:53 Dose: 40 mg Potassium Chloride/Sodium Chloride (Normal Saline With 20 Meq Kcl) 1,000 mls @ 125 mls/hr IV ASDIRECTED [facility] Last Admin: 07/13/17 23:11 Dose: 125 mls/hr Levofloxacin/Dextrose (Levaquin In D5w 750 Mg/150 Ml) Confirm Administered Dose 150 mls @ as directed IV .STK-MED ONE Stop: 07/13/17 23:02 Last Admin: 07/13/17 23:07 Dose: Not Given Levofloxacin/Dextrose (Levaquin In D5w 750 Mg/150 Ml) Confirm Administered Dose 150 mls @ as directed IV .STK-MED ONE Stop: 07/13/17 23:15 Last Admin: 07/13/17 23:30 Dose: Not Given Potassium Chloride/Sodium Chloride (Normal Saline With 20 Meq Kcl) 1,000 mls @ 125 mls/hr IV Q8H [facility] Non-Formulary Medication (.Aminopyridine) 20 mg PO 0800,1200,1800 [facility] Pneumococcal Polyvalent Vaccine (Pneumovax 23) 0.5 ml SUBCUT .ONCE ONE Stop: 07/14/17 09:01 Last Admin: 07/14/17 09:07 Dose: 0.5 ml - Exam Quality Assessment: Supplemental Oxygen General: Alert, Oriented HEENT: Pupils Equal, Pupils Reactive, EOMI, Mucous Membr. Moist/[place] Neck: Supple Lungs: Clear to Auscultation, Normal Respiratory Effort Cardiovascular: Regular Rate, Regular Rhythm GI/Abdominal Exam: Non-Tender, Distended - Problem List & Annotations (1) Pressure ulcer SNOMED Code(s): 077687828 Code(s): L89.90 - PRESSURE ULCER OF UNSPECIFIED SITE, UNSPECIFIED STAGE Status: Acute Current Visit: Yes Qualifiers: Pressure ulcer location: sacral region (2) UTI (urinary tract infection) SNOMED Code(s): 89136475 Code(s): N39.0 - URINARY TRACT INFECTION, SITE NOT SPECIFIED Status: Acute Current Visit: Yes Qualifiers: Urinary tract infection type: catheter-associated UTI (3) Multiple sclerosis SNOMED Code(s): 59239357 Code(s): G35 - MULTIPLE SCLEROSIS Status: Chronic Current Visit: No (4) Neurogenic dysfunction of the urinary bladder SNOMED Code(s): 710405228 Code(s): N31.9 - NEUROMUSCULAR DYSFUNCTION OF BLADDER, UNSPECIFIED Status: Acute Current Visit: No (5) 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 SNOMED Code(s): 855234354 Code(s): I82.403 - ACUTE EMBOLISM AND THOMBOS UNSP DEEP VEINS OF LOW EXTRM, BI Status: Chronic Current Visit: No (6) Urinary retention SNOMED Code(s): 264485664 Code(s): R33.9 - RETENTION OF URINE, UNSPECIFIED Status: Acute Current Visit: Yes (7) Hypokalemia SNOMED Code(s): 79895805 Code(s): E87.6 - HYPOKALEMIA Status: Acute Current Visit: Yes (8) Long-term (current) use of anticoagulants SNOMED Code(s): 035290404 Code(s): Z79.01 - S[employer] [employer]IVING (CURRENT) USE OF ANTICOAGULANTS Status: Acute Current Visit: Yes - Problem List Review Problem List Initiated/Reviewed/Updated: Yes - My Orders Last 24 Hours: My Active Orders 07/14/17 07:00 Oxygen Therapy Adult [Oxygen Therapy] [RC] ASDIRECTED 07/14/17 08:00 Baclofen [Lioresal] 30 mg PO 0800 07/14/17 08:38 Acetaminophen/HYDROcodone [[place] 325-5 MG] 1 tab PO Q6H PRN Diazepam [Valium] 10 mg PO TID PRN 07/14/17 08:46 Abdomen 2V AP Flat Upright [CR] Urgent 07/14/17 08:59 Sodium Chloride 0.9% [Saline Flush] 10 ml FLUSH ASDIRECTED PRN 07/14/17 09:00 Cholecalciferol (Vitamin D3) [Vitamin D3] 2,000 units PO DAILY Cyanocobalamin (Vitamin B12) [Vitamin B12] 250 mcg PO DAILY Docusate Sodium [Colace] 100 mg PO BID Potassium Chloride [Klor-Con M20] 20 meq PO BID Sodium Chloride 0.9% [Normal Saline] 250 ml IV ASDIRECTED Tamsulosin [Flomax] 0.4 mg PO DAILY 07/14/17 09:18 .Aminopyridine 10 mg PO 0800,1200,1800 07/14/17 12:00 Furosemide [Lasix] 80 mg PO BID@0800,1200 07/14/17 15:00 Baclofen [Lioresal] 40 mg PO 1500,202907/14/17 15:30 Levothyroxine 150 mcg PO DAILY@1530 Levothyroxine 75 mcg PO DAILY@1530 Pantoprazole [ProTONIX] 40 mg PO DAILY@1530 Sertraline [Zoloft] 100 mg PO DAILY@1530 07/14/17 16:00 Warfarin [Coumadin] 5 mg PO SUTUTHSA@1600 07/14/17 18:57 Up to Chair [RC] ASDIRECTED 07/14/17 19:15 Resuscitation Status Routine 07/14/17 20:51 Tinactin Pwd See Dose Instructions TOP BID PRN 07/14/17 21:00 Gabapentin [Neurontin] 300 mg PO BEDTIME tiZANidine [Zanaflex] 4 mg PO BEDTIME 07/15/17 07:49 Cardiac Monitoring [RC] .As Directed 07/15/17 08:00 Potassium Chloride [KCl 10 MEQ in Water 100 ML] 10 meq Premix Bag 1 bag IV Q4H Potassium Chloride [Klor-Con M20] 40 meq PO TID 07/15/17 15:00 BASIC METABOLIC PANEL,BMP [CHEM] Routine 07/16/17 16:00 Warfarin [Coumadin] 2.5 mg PO MoWeFr@1600 07/20/17 06:00 Metolazone [Zaroxolyn] 2.5 mg PO FR - Plan Plan:: He has severe hypokalemia probably from the Lasix. I will replace it through the IV and orally. I'll also order an EKG and repeat basic profile today along with a Trop. I recommended weaning off oxygen to keep O2 saturations above 90 percent.I ve ordered incentive spirometry to that and. The etiology of his hypoxia still undetermined at this time I suspected due to the abdominal distention and hiatal hernia and gaseous distention. He has an appointment tomorrow theat he is trying to get to,with MS team at [place]. Shift the consultation with the surgeon was recommended wet-to-dry dressing decubitus ulcer along the general measures. In the meantime continue the IV Levaquin UTI
[2017-07-15] MEDS: AMINOPYRIDINE PO SCH ×3 (08:40→17:52)
[2017-07-15] MEDS: Docusate Sodium 100 MG Cap PO SCH ×2 (08:41→20:23)
[2017-07-15] MEDS: Baclofen 10 MG Tab PO SCH ×3 (08:41→20:21)
[2017-07-15] MEDS: Furosemide 80 MG Tab PO SCH ×2 (08:41→12:56)
[2017-07-15] MEDS: Tamsulosin 0.4 MG Cap.ER PO SCH (08:42)
[2017-07-15] MEDS: Cyanocobalamin (Vitamin B12) 500 MCG Tab PO SCH ×2 (08:43→08:52)
[2017-07-15] MEDS: Cholecalciferol (Vitamin D3) 1,000 Unit Tab PO SCH (08:45)
[2017-07-15] MEDS: Potassium Chloride 20 MEQ Tab.ER PO SCH ×4 (08:50→20:26)
[2017-07-15] MEDS ORDERED: Potassium Chloride 100 ML ONE ×2 (08:59→12:50)
[2017-07-15] MEDS: Sodium Chloride 0.9% 250 ML IV SCH ×2 (09:09→16:29)
[2017-07-15] MEDS: Potassium Chloride 10 MEQ in Premix Bag 1 BAG IV SCH ×4 (09:09→20:15)
[2017-07-15] MEDS: Sodium Chloride 0.9% 10 ML Syringe FLUSH PRN ×2 (12:57→17:16)
[2017-07-15] MEDS ORDERED: Potassium Chloride 20 MEQ Tab.ER ONE (13:55)
[2017-07-15] MEDS: Sertraline 100 MG Tab PO SCH (14:52)
[2017-07-15] MEDS: Levothyroxine 75 MCG Tab PO SCH (14:52)
[2017-07-15] MEDS: Levothyroxine 150 MCG Tab PO SCH (14:52)
[2017-07-15] MEDS: Pantoprazole 40 MG Tab.CR PO SCH (14:52)
[2017-07-15] MEDS: Warfarin 5 MG Tab PO SCH (16:22)
[2017-07-15] MEDS ORDERED: Iopamidol 755 Mg/ML 75 ML Bottle IV ONE (20:14)
[2017-07-15] MEDS: tiZANidine 4 MG Tab PO SCH (20:24)
[2017-07-15] MEDS: Gabapentin 300 MG Cap PO SCH (20:24)
[2017-07-15] MEDS: Levofloxacin/Dextrose 5%-Water 750 MG in Premix Bag 1 BAG IV SCH (22:34)
[2017-07-16] MEDS: Albuterol/Ipratropium 3.0-0.5 MG/3 ML Neb Soln NEB SCH (07:32)
--- NOTE | 2017-07-16 08:57 | PCM.PN ---
- General Info Date of Service: 07/16/17 Admission Dx/Problem (Free Text): Admission Diagnosis/Problem Admission Diagnosis/Problem Pneumonia involving left lung Subjective Update: 67-year-old male with multiple sclerosis protein because of UTI .Overnight she has not he had no new symptoms. Blood pressures been noted to be trending downwards below 100 systolic. He also had a low potassium yesterday this was replaced by IV and oral medications. He denies fever chills. chest pain on today 's also feeling short of breath. Functional Status: Reports: Pain Controlled, Tolerating Diet - Review of Systems General: Denies: Fever, Weakness HEENT: Reports: No Symptoms Pulmonary: Denies: Shortness of Breath, Pleuritic Chest Pain, Cough Cardiovascular: Reports: No Symptoms Gastrointestinal: Reports: No Symptoms Genitourinary: Reports: No Symptoms - Patient Data Vitals - Most Recent: Last Vital Signs Temp 99.1 F 07/16/17 00:00 Pulse 78 07/16/17 07:47 Resp 20 07/16/17 00:00 BP 101/66 07/16/17 00:00 Pulse Ox 90 L 07/16/17 08:00 Weight - Most Recent: 121.88 kg I&O - Last 24 Hours: Intake & Output 07/15/17 07/16/17 07/16/17 22:59 06:59 14:59 Intake Total 250 900 Output Total 1850 700 Balance -1600 200 Lab Results Last 24 Hours: Laboratory Results - last 24 hr 07/15/17 07/15/17 07/15/17 Range/Units 06:15 15:00 15:00 WBC (4.5-12.0) X10-3/uL RBC (4.30-5.75) x10(6)uL Hgb (11.5-15.5) g/dL Hct (30.0-51.3) % MCV (80-96) fL MCH (27.7-33.6) pg MCHC (32.2-35.4) g/dL RDW (11.5-15.5) % Plt Count (125-369) X10(3)uL MPV (7.4-10.4) fL Neut % (Auto) (46-82) % Lymph % (Auto) (13-37) % [place] % (Auto) (4-12) % Eos % (Auto) (1.0-5.0) % Baso % (Auto) (0-2) % Neut # (Auto) (1.6-8.3) # Lymph # (Auto) (0.6-5.0) # [place] # (Auto) (0.0-1.3) # Eos # (Auto) (0.0-0.8) # Baso # (Auto) (0.0-0.2) # Sodium 138 (135-145) mmol/L Potassium 2.7 L* (3.5-5.3) mmol/L Chloride 91 L (100-110) mmol/L Carbon Dioxide 36 H (23-29) mmol/L BUN 21 (8-23) mg/dL Creatinine 1.1 (0.6-1.3) mg/dL Est Cr Clr Drug Dosing 73.48 mL/min Estimated GFR (MDRD) > 60 (>60) BUN/Creatinine Ratio 19.1 (9-20) Glucose 151 H (80-116) mg/dL Calcium 9.9 (8.6-10.2) mg/dL Magnesium 1.7 L (1.8-2.5) mg/dL Amylase 54 (28-100) U/L 07/16/17 07/16/17 Range/Units 06:05 06:05 WBC 11.1 (4.5-12.0) X10-3/uL RBC 4.75 (4.30-5.75) x10(6)uL Hgb 13.5 (11.5-15.5) g/dL Hct 40.8 (30.0-51.3) % MCV 85.9 (80-96) fL MCH 28.5 (27.7-33.6) pg MCHC 33.2 (32.2-35.4) g/dL RDW 17.4 H (11.5-15.5) % Plt Count 278 (125-369) X10(3)uL MPV 7.2 L (7.4-10.4) fL Neut % (Auto) 72.6 (46-82) % Lymph % (Auto) 16.3 (13-37) % [place] % (Auto) 8.2 (4-12) % Eos % (Auto) 3 (1.0-5.0) % Baso % (Auto) 0 (0-2) % Neut # (Auto) 8.1 (1.6-8.3) # Lymph # (Auto) 1.8 (0.6-5.0) # [place] # (Auto) 0.9 (0.0-1.3) # Eos # (Auto) 0.3 (0.0-0.8) # Baso # (Auto) 0.0 (0.0-0.2) # Sodium 138 (135-145) mmol/L Potassium 3.0 L (3.5-5.3) mmol/L Chloride 94 L (100-110) mmol/L Carbon Dioxide 34 H (23-29) mmol/L BUN 20 (8-23) mg/dL Creatinine 1.1 (0.6-1.3) mg/dL Est Cr Clr Drug Dosing 73.48 mL/min Estimated GFR (MDRD) > 60 (>60) BUN/Creatinine Ratio 18.2 (9-20) Glucose 115 (80-116) mg/dL Calcium 9.3 (8.6-10.2) mg/dL Magnesium (1.8-2.5) mg/dL Amylase (28-100) U/L Jak Results Last 24 Hours: Microbiology 07/13/17 23:25 Urine Culture - Final Urine, Voided Klebsiella Oxytoca Med Orders - Current: Current Medications Hydrocodone Bitart/Acetaminophen ([place] 325-5 Mg) 1 tab PO Q6H PRN PRN Reason: Pain Albuterol/Ipratropium (Duoneb 3.0-0.5 Mg/3 Ml) 3 ml NEB Q8H [facility] Last Admin: 07/16/17 07:32 Dose: 3 ml Baclofen (Lioresal) 30 mg PO 0800 [facility] Last Admin: 07/15/17 08:41 Dose: 30 mg Baclofen (Lioresal) 40 mg PO 1500,2030 [facility] Last Admin: 07/15/17 20:21 Dose: 40 mg Cholecalciferol (Vitamin D3) 2,000 units PO DAILY [facility] Last Admin: 07/15/17 08:45 Dose: 2,000 units Cyanocobalamin (Vitamin B12) 250 mcg PO DAILY [facility] Last Admin: 07/15/17 08:52 Dose: Not Given Diazepam (Valium) 10 mg PO TID PRN PRN Reason: Spasms Docusate Sodium (Colace) 100 mg PO BID [facility] Last Admin: 07/15/17 20:23 Dose: 100 mg Furosemide (Lasix) 80 mg PO BID@0800,1200 [facility] Last Admin: 07/15/17 12:56 Dose: 80 mg Gabapentin (Neurontin) 300 mg PO BEDTIME [facility] Last Admin: 07/15/17 20:24 Dose: 300 mg Levofloxacin/Dextrose 750 mg/ (Premix) 150 mls @ 100 mls/hr IV Q24H [facility] Last Admin: 07/15/17 22:34 Dose: 100 mls/hr Sodium Chloride (Normal Saline) 250 mls @ 100 mls/hr IV ASDIRECTED [facility] Last Admin: 07/15/17 16:29 Dose: 100 mls/hr Levothyroxine Sodium (Levothyroxine) 150 mcg PO DAILY@1530 [facility] Last Admin: 07/15/17 14:52 Dose: 150 mcg Levothyroxine Sodium (Levothyroxine) 75 mcg PO DAILY@1530 [facility] Last Admin: 07/15/17 14:52 Dose: 75 mcg Metolazone (Zaroxolyn) 2.5 mg PO FR [facility] Aminopyridine Pt (Own Med) 10 mg PO 0800,1200,1800 [facility] Last Admin: 07/15/17 17:52 Dose: 10 mg (Tinactin Pwd 0 Applic)Own Med* 0 applic TOP BID PRN PRN Reason: Rash Last Admin: 07/15/17 08:20 Dose: 1 applic Ondansetron HCl (Zofran) 4 mg IVPUSH Q4H PRN PRN Reason: Nausea/Vomiting Last Admin: 07/13/17 23:22 Dose: 4 mg Pantoprazole Sodium (Protonix) 40 mg PO DAILY@1530 [facility] Last Admin: 07/15/17 14:52 Dose: 40 mg Potassium Chloride (Klor-Con M20) 40 meq PO TID [facility] Last Admin: 07/15/17 20:26 Dose: 40 meq Sertraline HCl (Zoloft) 100 mg PO DAILY@1530 [facility] Last Admin: 07/15/17 14:52 Dose: 100 mg Sodium Chloride (Saline Flush) 10 ml FLUSH ASDIRECTED PRN PRN Reason: flush med Last Admin: 07/15/17 17:16 Dose: 10 ml Tamsulosin HCl (Flomax) 0.4 mg PO DAILY [facility] Last Admin: 07/15/17 08:42 Dose: 0.4 mg Tizanidine HCl (Zanaflex) 4 mg PO BEDTIME [facility] Last Admin: 07/15/17 20:24 Dose: 4 mg Warfarin Sodium (Coumadin) 2.5 mg PO MoWeFr@1600 [facility] Warfarin Sodium (Coumadin) 5 mg PO SUTUTHSA@1600 [facility] Last Admin: 07/15/17 16:22 Dose: 5 mg Discontinued Medications Furosemide (Lasix) 40 mg IVPUSH NOW ONE Stop: 07/14/17 08:54 Last Admin: 07/14/17 09:53 Dose: 40 mg Potassium Chloride/Sodium Chloride (Normal Saline With 20 Meq Kcl) 1,000 mls @ 125 mls/hr IV ASDIRECTED [facility] Last Admin: 07/13/17 23:11 Dose: 125 mls/hr Levofloxacin/Dextrose (Levaquin In D5w 750 Mg/150 Ml) Confirm Administered Dose 150 mls @ as directed IV .STK-MED ONE Stop: 07/13/17 23:02 Last Admin: 07/13/17 23:07 Dose: Not Given Levofloxacin/Dextrose (Levaquin In D5w 750 Mg/150 Ml) Confirm Administered Dose 150 mls @ as directed IV .STK-MED ONE Stop: 07/13/17 23:15 Last Admin: 07/13/17 23:30 Dose: Not Given Potassium Chloride/Sodium Chloride (Normal Saline With 20 Meq Kcl) 1,000 mls @ 125 mls/hr IV Q8H [facility] Potassium Chloride 10 meq/ (Premix) 100 mls @ 100 mls/hr IV Q4H [facility] Stop: 07/15/17 20:59 Last Admin: 07/15/17 20:15 Dose: 50 mls/hr Potassium Chloride (Kcl 10 Meq In Water 100 Ml) Confirm Administered Dose 100 mls @ as directed .ROUTE .STK-MED ONE Stop: 07/15/17 09:00 Last Admin: 07/15/17 11:48 Dose: Not Given Potassium Chloride (Kcl 10 Meq In Water 100 Ml) Confirm Administered Dose 100 mls @ as directed .ROUTE .STK-MED ONE Stop: 07/15/17 12:51 Last Admin: 07/15/17 12:57 Dose: Not Given Iopamidol (Isovue-370 (76%)) 75 ml IV ONETIME ONE Stop: 07/15/17 20:15 Last Admin: 07/15/17 20:51 Dose: 75 ml Non-Formulary Medication (.Aminopyridine) 20 mg PO 0800,1200,1800 [facility] Pneumococcal Polyvalent Vaccine (Pneumovax 23) 0.5 ml SUBCUT .ONCE ONE Stop: 07/14/17 09:01 Last Admin: 07/14/17 09:07 Dose: 0.5 ml Potassium Chloride (Klor-Con M20) 20 meq PO BID [facility] Last Admin: 07/14/17 20:27 Dose: 20 meq Potassium Chloride (Klor-Con M20) Confirm Administered Dose 40 meq .ROUTE .STK- MED ONE Stop: 07/15/17 13:56 Last Admin: 07/15/17 14:39 Dose: Not Given - Exam Quality Assessment: Supplemental Oxygen General: Alert, Oriented HEENT: Pupils Reactive Neck: Supple Lungs: Clear to Auscultation Cardiovascular: Regular Rate Skin: Warm Psy/Mental Status: Alert - Problem List & Annotations (1) Pressure ulcer SNOMED Code(s): 103970466 Code(s): L89.90 - PRESSURE ULCER OF UNSPECIFIED SITE, UNSPECIFIED STAGE Status: Acute Current Visit: Yes Qualifiers: Pressure ulcer location: sacral region (2) UTI (urinary tract infection) SNOMED Code(s): 92021392 Code(s): N39.0 - URINARY TRACT INFECTION, SITE NOT SPECIFIED Status: Acute Current Visit: Yes Qualifiers: Urinary tract infection type: catheter-associated UTI (3) Multiple sclerosis SNOMED Code(s): 02686058 Code(s): G35 - MULTIPLE SCLEROSIS Status: Chronic Current Visit: No (4) Neurogenic dysfunction of the urinary bladder SNOMED Code(s): 399829917 Code(s): N31.9 - NEUROMUSCULAR DYSFUNCTION OF BLADDER, UNSPECIFIED Status: Acute Current Visit: No (5) 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 SNOMED Code(s): 571412673 Code(s): I82.403 - ACUTE EMBOLISM AND THOMBOS UNSP DEEP VEINS OF LOW EXTRM, BI Status: Chronic Current Visit: No (6) Urinary retention SNOMED Code(s): 579201916 Code(s): R33.9 - RETENTION OF URINE, UNSPECIFIED Status: Acute Current Visit: Yes (7) Hypokalemia SNOMED Code(s): 12553914 Code(s): E87.6 - HYPOKALEMIA Status: Acute Current Visit: Yes (8) Long-term (current) use of anticoagulants SNOMED Code(s): 251559024 Code(s): Z79.01 - [employer] (CURRENT) USE OF ANTICOAGULANTS Status: Acute Current Visit: Yes (9) Hypoxia SNOMED Code(s): 459330624, 666223249 Code(s): R09.02 - HYPOXEMIA Status: Acute Current Visit: Yes - Problem List Review Problem List Initiated/Reviewed/Updated: Yes - My Orders Last 24 Hours: My Active Orders 07/15/17 07:58 Incentive Spirometry [RT Incentive Spirometry] [RC] Q2HWA 07/15/17 08:00 Potassium Chloride [Klor-Con M20] 40 meq PO TID 07/15/17 17:58 Chest w Cont [CT] Routine 07/15/17 22:00 Dietetics Professor Discontinue [Cardiac Monitoring Discontinue] [RC] Click to Edit 07/15/17 Dinner Regular Diet [DIET] 07/16/17 16:00 Warfarin [Coumadin] 2.5 mg PO [id number] 07/20/17 06:00 Metolazone [Zaroxolyn] 2.5 mg PO FR - Plan Plan:: His hypokalemia is improved. But because of the slow blood pressure and decrease the dose of Lasix to 80 mg once a day instead of twice a day. I'll increase the potassium supplementation to 3 times a day. His oxygenation seems to be low 80s so no high 80s on room air I suspect this to be chronic DUE to the large hernia seen on CT scan a few years ago or because of the aspiration pneumonitis.that was mentioned in the CT yesterday. I've chosen to treat that with ciprofloxacin 500 twice a day. This also Is to cover the Klebsiella oxytocica in the urine. I will let him go home today so he can make his appointment at the multiple sclerosis clinic. I've advised him to see Dr. Moore on .
[2017-07-16] MEDS: AMINOPYRIDINE PO SCH (09:12)
[2017-07-16] MEDS: Baclofen 10 MG Tab PO SCH (09:13)
[2017-07-16] MEDS: Furosemide 80 MG Tab PO SCH (09:13)
[2017-07-16] MEDS: Docusate Sodium 100 MG Cap PO SCH (09:14)
[2017-07-16] MEDS: Potassium Chloride 20 MEQ Tab.ER PO SCH (09:15)
[2017-07-16] MEDS: Tamsulosin 0.4 MG Cap.ER PO SCH (09:15)
[2017-07-16] MEDS: Cyanocobalamin (Vitamin B12) 500 MCG Tab PO SCH ×2 (09:16→09:17)
[2017-07-16] MEDS: Cholecalciferol (Vitamin D3) 1,000 Unit Tab PO SCH (09:18)
[2017-07-16 11:22] VITALS: BP 93/64
[2017-07-16] MEDS ORDERED: Warfarin 2.5 MG Tab PO SCH (16:00)
--- NOTE | 2017-07-17 06:41 | DISCH ---
DISCHARGE DATE: 07/16/2017 REASON FOR ADMISSION: 1. Pneumonia. 2. Urinary tract infection. 3. Multiple sclerosis. 4. Long-term use of anticoagulant. 5. Hypokalemia. 6. History of recurrent deep venous thrombosis. 7. Pressure ulcer. DISCHARGE DIAGNOSES: 1. Catheter associated urinary tract infection. 2. Aspiration pneumonitis. 3. Multiple sclerosis. 4. Hypokalemia, severe. 5. History of recurrent deep venous thrombosis. 6. Urinary retention. 7. Multiple sclerosis. 8. Long-term use of anticoagulants. CONSULTATIONS: Dr. Lilly. BRIEF HISTORY AND HOSPITAL COURSE: A 67-year-old male known to have multiple sclerosis was brought in with weakness and nausea symptoms he typically presents with when he has a UTI. He was found to have urinary retention and his catheter was replaced. His urine has grown Klebsiella oxytoca. He was put on Levaquin upon admission because of suspicion of pneumonia on a chest x-ray. I reviewed the x-ray and noted he had a large hiatal hernia there and a CT done the day prior to discharge showed possible aspiration. He was hypoxic for most of the hospital stay, but improved to up to 1 L of oxygenation by nasal cannula to keep 90%-93% and was on room air at 88%. I suspect this to be chronic. His blood pressure also trended down once as such I decreased his Lasix. He was getting 80 mg twice a day. I discharged him home on 80 mg once a day. His potassium needed IV replacement and came up to 3.0 on discharge and was given three times a day instead of twice a day on discharge. I discharged him early so he could make his appointment at the [facility]. I spent more than 35 minutes in the discharge of this patient. The rest of his home medications were continued. His INR was therapeutic throughout the hospital stay. /[id number] EZE/ANTONIA
[2017-07-20] MEDS ORDERED: Metolazone 2.5 MG Tab PO SCH (06:00)
== END 2017-07-16 10:30 | disposition home or self-care (01) | DRG 698 ==
LOC: FB.ED 21:14 → FB.MS 22:46
PROVIDERS: ADMIT Family Medicine; ATTEND Family Medicine
DX: T83.511A Infection and inflammatory reaction due to indwelling urethral catheter, initial encounter (principal); J69.0 Pneumonitis due to inhalation of food and vomit; N39.0 Urinary tract infection, site not specified; B96.1 Klebsiella pneumoniae [K. pneumoniae] as the cause of diseases classified elsewhere; G35 Multiple sclerosis; L89.159 Pressure ulcer of sacral region, unspecified stage; N31.9 Neuromuscular dysfunction of bladder, unspecified; Z99.3 Dependence on wheelchair; E87.6 Hypokalemia; E03.9 Hypothyroidism, unspecified; Z66 Do not resuscitate; M54.9 Dorsalgia, unspecified; R09.02 Hypoxemia; K44.9 Diaphragmatic hernia without obstruction or gangrene; F32.9 Major depressive disorder, single episode, unspecified; K21.9 Gastro-esophageal reflux disease without esophagitis; Z86.718 Personal history of other venous thrombosis and embolism; H54.7 Unspecified visual loss; Z79.01 Long term (current) use of anticoagulants; Z88.0 Allergy status to penicillin; Z91.048 Other nonmedicinal substance allergy status; Z23 Encounter for immunization
CPT/HCPCS: 36415; 51702; 71010; 71260; 74020; 80048; 80053; 81001; 82150; 83735; 83880; 84484; 85025; 85610; 87040; 87086; 87088; 87186; 90732; 93005; 94150; 94640-76; 96365; 96375; 99212; 99285; A9270-GY; G0009; J1940; J1956; J2405; J3480; J7050; J7620; Q9967

== ENCOUNTER 2017-07-27 17:11 | Emergency (ER) | payer MEDICARE, BC ==
[2017-07-27 18:51] VITALS: BP 138/90
--- NOTE | 2017-07-31 11:29 | ER ---
DATE SEEN: 07/27/2017 TIME SEEN: The patient was seen at 1820 hours. SUBJECTIVE: This is a 67-year-old man who is paralyzed and in a wheelchair, noted difficulty passing urine this afternoon. The home health nurse removed his catheter, put another catheter, and then he was able to pass urine. Consequently, he went to the clinic, clinic referred him to the hospital for evaluation and care. The patient has marked pain and discomfort, 8/10 in intensity. He has marked fullness. Quick look ultrasound demonstrated a full bladder, at least 600 to 800 mL. A catheter 16 coude was placed and 1000 mL of urine relieved. The patient felt immense relief. The patient was then dismissed home. ALLERGIES: Mold and penicillin. MEDICATIONS: 1. Baclofen. 2. Aminopyridine. 3. Cipro b.i.d. 4. Vitamin D. 5. Diazepam. 6. Cyanocobalamin, B12. 7. Levothyroxine 225 mcg. 8. Gabapentin. 9. Lasix. 10.Dulcolax. 11.Omeprazole. 12.Metolazone. 13.Warfarin. 14.Flomax. 15.Zoloft. 16.Tizanidine. 17.Potassium chloride. ASSESSMENT: 1. Outlet obstruction, urethra. 2. Prostatism. 3. Obesity. 4. Paralysis. 5. Wheelchair ridden. 6. Hypothyroidism, treated. 7. Multiple sclerosis. PLAN: The patient dismissed to follow up with doctor on as needed basis. /[id number] MO/NATONIA
== END 2017-07-27 19:05 | disposition home or self-care (01) ==
LOC: FB.ED 17:11
DX: N36.8 Other specified disorders of urethra (principal); N40.0 Benign prostatic hyperplasia without lower urinary tract symptoms; E66.9 Obesity, unspecified; G83.9 Paralytic syndrome, unspecified; Z99.3 Dependence on wheelchair; E03.9 Hypothyroidism, unspecified; G35 Multiple sclerosis; Z88.0 Allergy status to penicillin; Z91.09 Other allergy status, other than to drugs and biological substances; Z79.899 Other long term (current) drug therapy; Z68.36 Body mass index [BMI] 36.0-36.9, adult
CPT/HCPCS: 51702; 99281; 99283

== ENCOUNTER 2017-11-21 10:09 | Emergency (ER) | payer MEDICARE, BC ==
--- NOTE | 2017-11-21 14:18 | EDM.PDOC ---
ED HPI GENERAL MEDICAL PROBLEM - General Chief Complaint: General Stated Complaint: WAEKNESS Time Seen by Provider: 11/21/17 10:11 Source of Information: Reports: Patient, Family History Limitations: Reports: Physical Impairment - History of Present Illness INITIAL COMMENTS - FREE TEXT/NARRATIVE: 67 y.o.w.m with a H/O MS, Metabolic syndrome and multiple medical issuse, come to the ed with his caregiver tot the ed because he could not lift his left arm, which is the only extremity he can use for eating. Pt had the same symptoms in the past. A that time, he had one sort of infection, like UTI. As soon that was "cleared up" he was able to use his arm again. Pt's estevez cath was changed 2 weeks ago and the Estevez bag was changed 1 week ago. Pt himself is not able to give a history of present illness. No N/V/D. no trauma. Pt has risk factors for CVAs. BP 158/68 pulse 102 temp 38.2 Pulse ox 91% on RA (90 is baseline, it goes t0 83 at sometime.) Onset Date: 11/20/17 Onset Time: 07:00 Duration: Day(s):, Intermittent Location: Reports: Upper Extremity, Left Quality: Reports: Other (unable to left left arm) Improves with: Reports: None Worsens with: Reports: None Context: Reports: Other (Multiple scerosis, metabolic syndrome and multiple medical problems) Associated Symptoms: Reports: Malaise, Weakness - Related Data Allergies Allergy/AdvReac Type Severity Reaction Status Date / Time mold Allergy Sneezing Verified 11/21/17 10:55 Penicillins Allergy Rash Verified 11/21/17 10:55 Home Meds: Home Meds Gabapentin [Neurontin] 300 mg PO BEDTIME 12/31/13 [History] Levothyroxine Sodium [Synthroid] 225 mcg PO DAILY@152912/31/13 [History] Omeprazole [priLOSEC OTC] 20 mg PO DAILY@152912/31/13 [History] Sertraline [Zoloft] 100 mg PO DAILY@152912/31/13 [History] tiZANidine [Zanaflex] 4 mg PO BEDTIME 12/31/13 [History] Cyanocobalamin (Vitamin B12) [Vitamin B12] 250 mcg PO DAILY 06/29/16 [History] Diazepam 10 mg PO TID PRN 06/29/16 [History] Docusate Sodium 100 mg PO BID 06/29/16 [History] Hydrocodone/Acetaminophen [Hydrocodon-Acetaminophen 5-325] 1 tab PO Q6H PRN 11/13 [History] Tamsulosin [Flomax] 0.4 mg PO DAILY 06/29/16 [History] Warfarin [Coumadin] 2.5 mg PO MOWEFR@1600 06/29/16 [History] Warfarin [Coumadin] 5 mg PO SUTUTHSA@1600 06/29/16 [History] Cholecalciferol (Vitamin D3) [Vitamin D3] 2,000 unit PO DAILY 04/11/17 [History] Metolazone 2.5 mg PO FR 04/11/17 [History] .Aminopyridine 10 mg PO 0800,1200,1800 07/13/17 [History] Baclofen 30 mg PO 0800 07/13/17 [History] Baclofen 40 mg PO 1500,2030 07/13/17 [History] Ciprofloxacin [Ciprofloxacin HCl] 500 mg PO BID #14 tab 07/16/17 [Rx] Furosemide [Lasix] 80 mg PO DAILY #30 tablet 07/16/17 [Rx] Potassium Chloride [Klor-Con M20] 20 meq PO TID #60 tab.er 07/16/17 [Rx] Levofloxacin 750 mg PO DAILY #9 tablet 11/21/17 [Rx] Past Medical History HEENT History: Reports: Impaired Vision, Other (See Below) Other HEENT History: Detached retina 1979. Cardiovascular History: Reports: Blood Clots/VTE/DVT Respiratory History: Reports: None Gastrointestinal History: Reports: GERD Genitourinary History: Reports: Other (See Below) Other Genitourinary History: Indwelling estevez, urethral. Musculoskeletal History: Reports: None Other Musculoskeletal History: Hx MS, lower extremities and his right side are weakest. Neurological History: Reports: MS Other Neuro History: is confined to wheelchair and use lift and sling to put patient to bed. Psychiatric History: Reports: Depression Endocrine/Metabolic History: Reports: Hypothyroidism Hematologic History: Reports: None Immunologic History: Reports: None Oncologic (Cancer) History: Reports: None Dermatologic History: Reports: Other (See Below) Other Dermatologic History: Had bed sore after hospitalization in [place] last year, is healed. - Infectious Disease History Infectious Disease History: Reports: Chicken Pox, Measles, Mumps - Past Surgical History Head Surgeries/Procedures: Reports: None HEENT Surgical History: Reports: Detached Retina, Oral Surgery Other HEENT Surgeries/Procedures: Tooth pulled. GI Surgical History: Reports: Colonoscopy, Hernia Repair/Other Neurological Surgical History: Reports: Other (See Below) Other Neurological Surgeries/Procedures: Neck surgery at base of neck, nerve canal. Musculoskeletal Surgical History: Reports: Arthroscopic Knee, Other (See Below) Other Musculoskeletal Surgeries/Procedures:: Right knee arthroscopic surgery. Social & Family History - Family History Family Medical History: Noncontributory - Tobacco Use Smoking Status *Q: Never Smoker Second Hand Smoke Exposure: No - Caffeine Use Caffeine Use: Reports: None - Recreational Drug Use Recreational Drug Use: No ED ROS GENERAL - Review of Systems Review Of Systems: Unable To Obtain ED EXAM, GENERAL - Physical Exam Exam: See Below Exam Limited By: Physical Impairment General Appearance: Alert, Obese (morbid) Eye Exam: Bilateral Eye: Normal Inspection Ears: Normal External Exam Ear Exam: Bilateral Ear: Auricle Normal Nose: Normal Inspection Throat/Mouth: Normal Inspection Head: Atraumatic Neck: Normal Inspection Respiratory/Chest: No Respiratory Distress Cardiovascular: Normal Peripheral Pulses, Regular Rate, Rhythm Peripheral Pulses: 1+: Radial (L) GI/Abdominal: Normal Bowel Sounds, Soft, Non-Tender, Distended (distended (not new)) (Male) Exam: Deferred Rectal (Males) Exam: Deferred Back Exam: Normal Inspection, Full Range of Motion Extremities: Pedal Edema (chronic) Neurological: Alert, Oriented, CN II-XII Intact, Normal Cognition, Other ( unable to ambulate) Psychiatric: Normal Affect, Normal Mood Skin Exam: Warm, Dry, Intact, Normal Color, No Rash Lymphatic: No Adenopathy Course - Vital Signs Text/Narrative:: 67 y.o.w.m with a H/O MS, Metabolic syndrome and multiple medical issues, come to the ed with his caregiver tot the ed because he could not lift his left arm, which is the only extremity he can use for eating. Pt had the same symptoms in the past. A that time, he had one sort of infection, like UTI. As soon that was "cleared up" he was able to use his arm again. Pt's estevez cath was changed 2 weeks ago and the Estevez bag was changed 1 week ago. Pt himself is not able to give a history of present illness. No N/V/D. no trauma. Pt has risk factors for CVAs. BP 158/68 pulse 102 temp 38.2 Pulse ox 91% on RA (90 is baseline, it goes t0 83 at sometime.) PE: Morbid obese, total care, not able to move any of his extremities, see not above. Labs: UA pos for UTI with hematuria. CBC and BMP were basically nl Glc was 143 lactic acid was 1.9 U Cx is pending Impression: Metabolic syndrome, UTI, morbid obesity, total care Tx: Levoquine 750 mg PO Reexam: improved, pt was fed before d/c, Caregiver agreed with Tx Plan: D/c with instructions. Last Recorded V/S: Last Vital Signs Temp 37.1 C 11/21/17 14:00 Pulse 95 11/21/17 14:00 Resp 18 11/21/17 14:00 BP 129/74 11/21/17 14:00 Pulse Ox 90 L 11/21/17 14:00 - Orders/Labs/Meds Orders: Active Orders 24 hr Category Date Time Status CULTURE BLOOD [BC] Urgent Lab 11/21/17 10:50 Received CULTURE URINE [RM] Stat Lab 11/21/17 12:37 Received Blood Culture x2 Reflex Set [OM.PC] Urgent Oth 11/21/17 10:35 Ordered Labs: Laboratory Tests 11/21/17 11/21/17 11/21/17 Range/Units 10:50 10:50 10:50 WBC 9.2 (4.5-12.0) X10-3/uL RBC 5.24 (4.30-5.75) x10(6)uL Hgb 14.8 (11.5-15.5) g/dL Hct 45.1 (30.0-51.3) % MCV 86.1 (80-96) fL MCH 28.2 (27.7-33.6) pg MCHC 32.7 (32.2-35.4) g/dL RDW 15.8 H (11.5-15.5) % Plt Count 288 (125-369) X10(3)uL MPV 6.9 L (7.4-10.4) fL Neut % (Auto) 77.5 (46-82) % Lymph % (Auto) 7.6 L (13-37) % Price % (Auto) 12.0 (4-12) % Eos % (Auto) 0 L (1.0-5.0) % Baso % (Auto) 3 H (0-2) % Neut # (Auto) 7.2 (1.6-8.3) # Lymph # (Auto) 0.7 (0.6-5.0) # Price # (Auto) 1.1 (0.0-1.3) # Eos # (Auto) 0.0 (0.0-0.8) # Baso # (Auto) 0.2 (0.0-0.2) # PT 22.9 H (8.7-11.1) INR 2.23 H (0.89-1.13) Sodium 140 (135-145) mmol/L Potassium 3.8 (3.5-5.3) mmol/L Chloride 102 (100-110) mmol/L Carbon Dioxide 27 (21-32) mmol/L BUN 15 (7-18) mg/dL Creatinine 1.1 (0.70-1.30) mg/dL Est Cr Clr Drug Dosing TNP Estimated GFR (MDRD) > 60 (>60) BUN/Creatinine Ratio 13.6 (9-20) Glucose 145 H (80-116) mg/dL Lactic Acid (0.4-2.2) mmol/L Calcium 9.2 (8.6-10.2) mg/dL Urine Color (YELLOW) Urine Appearance (CLEAR) Urine pH (5.0-6.5) Ur Specific [place] (1.010-1.025) Urine Protein (NEGATIVE) mg/dL Urine Glucose (UA) (NEGATIVE) mg/dL Urine Ketones (NEGATIVE) mg/dL Urine Occult Blood (NEGATIVE) Urine Nitrite (NEGATIVE) Urine Bilirubin (NEGATIVE) Urine Urobilinogen (NEGATIVE) mg/dL Ur Leukocyte Esterase (NEGATIVE) Urine RBC (0) Urine WBC (0) Ur Squamous Epith Cells (NS,R,O) Urine Bacteria (NS) 11/21/17 11/21/17 Range/Units 10:50 12:37 WBC (4.5-12.0) X10-3/uL RBC (4.30-5.75) x10(6)uL Hgb (11.5-15.5) g/dL Hct (30.0-51.3) % MCV (80-96) fL MCH (27.7-33.6) pg MCHC (32.2-35.4) g/dL RDW (11.5-15.5) % Plt Count (125-369) X10(3)uL MPV (7.4-10.4) fL Neut % (Auto) (46-82) % Lymph % (Auto) (13-37) % Price % (Auto) (4-12) % Eos % (Auto) (1.0-5.0) % Baso % (Auto) (0-2) % Neut # (Auto) (1.6-8.3) # Lymph # (Auto) (0.6-5.0) # Price # (Auto) (0.0-1.3) # Eos # (Auto) (0.0-0.8) # Baso # (Auto) (0.0-0.2) # PT (8.7-11.1) INR (0.89-1.13) Sodium (135-145) mmol/L Potassium (3.5-5.3) mmol/L Chloride (100-110) mmol/L Carbon Dioxide (21-32) mmol/L BUN (7-18) mg/dL Creatinine (0.70-1.30) mg/dL Est Cr Clr Drug Dosing Estimated GFR (MDRD) (>60) BUN/Creatinine Ratio (9-20) Glucose (80-116) mg/dL Lactic Acid 1.9 (0.4-2.2) mmol/L Calcium (8.6-10.2) mg/dL Urine Color Yellow (YELLOW) Urine Appearance Cloudy (CLEAR) Urine pH 9.0 H (5.0-6.5) Ur Specific [place] 1.015 (1.010-1.025) Urine Protein Negative (NEGATIVE) mg/dL Urine Glucose (UA) Normal (NEGATIVE) mg/dL Urine Ketones Negative (NEGATIVE) mg/dL Urine Occult Blood Large H (NEGATIVE) Urine Nitrite Positive H (NEGATIVE) Urine Bilirubin Negative (NEGATIVE) Urine Urobilinogen Normal (NEGATIVE) mg/dL Ur Leukocyte Esterase Large H (NEGATIVE) Urine RBC >100 H (0) Urine WBC >100 H (0) Ur Squamous Epith Cells Few H (NS,R,O) Urine Bacteria Many H (NS) Meds: Medications Discontinued Medications Generic Name Dose Route Start Last Admin Trade Name Chelo PRN Reason Stop Dose Admin Levofloxacin 750 mg 11/21/17 14:15 11/21/17 14:35 Levaquin PO 11/21/17 14:16 750 mg ONETIME STA Administration Departure - Departure Time of Disposition: 14:18 Disposition: Home, Self-Care 01 Condition: Good Clinical Impression: UTI (urinary tract infection) Qualifiers: Urinary tract infection type: acute cystitis Hematuria presence: with hematuria Qualified Code(s): N30.01 - Acute cystitis with hematuria - Discharge Information Prescriptions: Levofloxacin 750 mg PO DAILY #9 tablet Instructions: Urinary Tract Infection, Adult Referrals: Yoel Moore MD [Primary Care Provider] - Forms: ED Department Discharge Additional Instructions: Please increase water intake, please take the meds as recommended, please f/u, come back if your symptoms get worse acutely - My Orders Last 24 Hours: My Active Orders 11/21/17 10:35 Blood Culture x2 Reflex Set [OM.PC] Urgent 11/21/17 10:50 CULTURE BLOOD [BC] Urgent 11/21/17 12:37 CULTURE URINE [RM] Stat - Assessment/Plan Last 24 Hours: My Active Orders 11/21/17 10:35 Blood Culture x2 Reflex Set [OM.PC] Urgent 11/21/17 10:50 CULTURE BLOOD [BC] Urgent 11/21/17 12:37 CULTURE URINE [RM] Stat
[2017-11-21] MEDS: Levofloxacin 250 MG Tab PO STA (14:35)
[2017-11-21 17:33] VITALS: BP 129/74
== END 2017-11-21 14:44 | disposition home or self-care (01) ==
LOC: FB.ED 10:09
DX: N30.01 Acute cystitis with hematuria (principal); E88.81 Metabolic syndrome and other insulin resistance; E66.01 Morbid (severe) obesity due to excess calories; Z79.899 Other long term (current) drug therapy; K21.9 Gastro-esophageal reflux disease without esophagitis; Z79.01 Long term (current) use of anticoagulants; Z88.0 Allergy status to penicillin; Z91.09 Other allergy status, other than to drugs and biological substances
CPT/HCPCS: 36415; 80048; 81001; 83605; 85025; 85610; 87040; 87086; 87088; 99283; A9270; 87186

== ENCOUNTER 2018-08-03 12:02 | Inpatient (IN) | payer MEDICARE, BC ==
[2018-08-03] MEDS ORDERED: Pantoprazole 40 MG Vial IVPUSH SCH (12:45)
[2018-08-03] MEDS: Sodium Chloride 0.9% 1,000 ML IV SCH ×2 (13:28→23:57)
[2018-08-03] MEDS: Sodium Chloride 0.9% 10 ML Syringe FLUSH PRN ×2 (14:00→15:30)
[2018-08-03] MEDS ORDERED: Iopamidol 755 MG/ML 150 ML Bottle IV ONE (14:16)
[2018-08-03] MEDS ORDERED: Diatrizoate Meglumine/Diatrizoate Sodium 37% 30 ML Bottle PO SCH (14:30)
[2018-08-03] MEDS: Potassium Chloride 20 MEQ Tab.ER PO SCH ×3 (16:14→22:22)
--- NOTE | 2018-08-03 16:17 | CONS ---
DATE OF CONSULTATION: 08/03/2018 HISTORY OF PRESENT ILLNESS: The patient is a 68-year-old male who was admitted today from the outpatient clinic with symptoms of diarrhea, which he and his say have been present for about 3 weeks. The stools may only occur once or twice a day but are very liquid and are not foul smelling. They have seen only a minimal amount of blood. The patient denies any associated abdominal pain. There has been no nausea or vomiting, and he has been continuing to eat, an amount which he feels is normal. There has been a question of increased abdominal distention and periodically, his says that his abdomen does get firm. The patient has had some courses of antibiotics during the summer months. He was seen in the outpatient clinic earlier today, where abdominal x-rays were interpreted as showing a possible sigmoid volvulus. The patient has undergone a CT scan of the abdomen here. The results of this are not available yet. PAST MEDICAL HISTORY: Notes severe progressive multiple sclerosis, which leaves the patient bedridden. He can move his left arm slightly but is not able to move his legs or his right arm. He does state that he can sense pain and so feels that if he was having abdominal pain, he would be able to detect this. He also is anticoagulated on Coumadin. PHYSICAL EXAMINATION: VITAL SIGNS: The patient is 260 pounds. He is afebrile. GENERAL: He is alert and resting comfortably. EYES: There is no scleral icterus. HEART: Regular without murmur. LUNGS: Clear. ABDOMEN: Distended diffusely. I do not feel any abdominal masses. The abdomen, although distended, is soft and there is no guarding or tenderness to percussion or direct tenderness in any quadrant. He has a small umbilical hernia, but this is soft, nontender with no sign of incarceration. IMPRESSION: Diarrhea, etiology unclear. CT scan results pending to determine whether sigmoid volvulus is present. PLAN: With the patient's other medical problems, he is not a candidate for an anesthetic procedure at this facility. If he would have a surgical problem noted on the CT scan or clinical, then he would need to be transferred to a tertiary care center where he could have appropriate surgical care if this is indicated. Thank you for allowing me to see this patient. /[id number] TESS/ANTONIA
[2018-08-03] MEDS ORDERED: Diazepam 10 MG Tab PO PRN (18:17)
[2018-08-03] MEDS ORDERED: Acetaminophen/HYDROcodone 325-5 MG Tab PO PRN (18:17)
--- NOTE | 2018-08-03 18:37 | PCM.HP ---
H&P History of Present Illness - General Date of Service: 08/03/18 Admit Problem/Dx: Admission Diagnosis/Problem Admission Diagnosis/Problem Volvulus of sigmoid colon Source of Information: Patient, Family, Old Records, Provider History Limitations: Reports: Other (Patient having trouble hearing as he feels ears are full of wax.) - History of Present Illness Initial Comments - Free Text/Narative: Patient is a 68-year-old male with essentially quadriplegia functionally secondary to MS who was traveling back in April or May and started to have diarrhea just before this. On chart review the patient was treated with Bactrim DS for UTI from 05/08-05/11. They went on a trip to [place], [place] and he was having loose stools during this time. They were loose but formed. About 3-4 weeks ago the stools became worse and more watery every time. They were copious although not terribly foul-smelling. They were mucousy but not bloody. They were brown or dark, not green. Any time he would be moved or repositioned he would have this explosive watery diarrhea. Because of his multiple sclerosis he' s unable to control his stools and it has become quite difficult. He hasn't had any abdominal pain with this, no fevers or chills, no nausea or vomiting, occasionally he gets a little confused but this has not been consistent or new. He has had no upper respiratory symptoms. No symptoms of chest pain or shortness of breath or other infectious symptoms. This morning when he woke up there was some wax in his ears and his tried to clear it out; after he complained that his ears feel plugged and he's had a hard time hearing since then. (On exam bilateral wax plugging completely obscured tympanic membranes and I ordered earwashes bilaterally at patient request.) Past medical history: Hypothyroidism Hyperlipidemia Obesity Multiple sclerosis diagnosed in November 2005 and rapidly progressive to functional quadriplegia. Patient has a neurogenic bladder secondary to this with an indwelling Estevez catheter. History of DVT in the left lower extremity currently on warfarin. Pedal edema treated with Lasix and metolazone. No documented hx of CHF. Social history: Patient is a nonsmoker, nondrinker. He is and lives with his in [place]. One daughter. Family history: The patient's mother is living at 98 years old and in good health. The patient' s father at 43 when the patient was 4 years old. The patient has 2 sisters one of whom has breast cancer, the other is healthy. One brother who is healthy. - Related Data Allergies/Adverse Reactions: Allergies Allergy/AdvReac Type Severity Reaction Status Date / Time mold Allergy Sneezing Verified 11/21/17 10:55 Penicillins Allergy Rash Verified 08/03/18 12:38 Home Medications: Home Meds Gabapentin [Neurontin] 300 mg PO BEDTIME 12/31/13 [History] Sertraline [Zoloft] 100 mg PO DAILY@1530 12/31/13 [History] tiZANidine [Zanaflex] 8 mg PO BEDTIME 12/31/13 [History] Cyanocobalamin (Vitamin B12) [Vitamin B12] 250 mcg PO DAILY 06/29/16 [History] Docusate Sodium 100 mg PO BID 06/29/16 [History] Hydrocodone/Acetaminophen [Hydrocodon-Acetaminophen 5-325] 0.5 tab PO Q6H PRN [History] Warfarin [Coumadin] 2.5 mg PO SUTUTHSA@1600 06/29/16 [History] Warfarin [Coumadin] 5 mg PO MOWEFR@1600 06/29/16 [History] diazePAM [Diazepam] 10 mg PO TID PRN 06/29/16 [History] Cholecalciferol (Vitamin D3) [Vitamin D3] 2,000 unit PO DAILY 04/11/17 [History] metOLazone [Metolazone] 2.5 mg PO FR 04/11/17 [History] .Aminopyridine 10 mg PO 0800,1200,1800 07/13/17 [History] Baclofen 40 mg PO TID 07/13/17 [History] Furosemide [Lasix] 80 mg PO DAILY #30 tablet 07/16/17 [Rx] Levothyroxine 225 mcg PO ACBREAKFAST 08/03/18 [History] Potassium Chloride [Klor-Con M20] 30 meq PO TID 08/03/18 [History] Verapamil HCl [Verapamil Sr] 120 mg PO BEDTIME 08/03/18 [History] Past Medical History HEENT History: Reports: Impaired Vision, Other (See Below) Other HEENT History: Detached retina 1979. Cardiovascular History: Reports: Blood Clots/VTE/DVT Respiratory History: Reports: None Gastrointestinal History: Reports: GERD Genitourinary History: Reports: Other (See Below) Other Genitourinary History: Indwelling estevez, urethra for the past 2-3 year.--- bag changed Q2wks, Catheter replaced Q4wks by Home Health nurse. Musculoskeletal History: Reports: None Other Musculoskeletal History: Hx MS, lower extremities and his right side are weakest. Neurological History: Reports: MS Other Neuro History: is confined to wheelchair and use lift and sling to put patient to bed. MS diagnosed in 2005, five years later he was wheelchair bound. Psychiatric History: Reports: Depression Endocrine/Metabolic History: Reports: Hypothyroidism Hematologic History: Reports: None Immunologic History: Reports: None Oncologic (Cancer) History: Reports: None Dermatologic History: Reports: Other (See Below) Other Dermatologic History: Had bed sore after hospitalization in [place] last year, is healed. - Infectious Disease History Infectious Disease History: Reports: Chicken Pox, Measles, Mumps - Past Surgical History Head Surgeries/Procedures: Reports: None HEENT Surgical History: Reports: Detached Retina, Oral Surgery Other HEENT Surgeries/Procedures: Tooth pulled. Cardiovascular Surgical History: Reports: None GI Surgical History: Reports: Colonoscopy, Hernia Repair/Other Male Surgical History: Reports: Kidney Stone Extraction Endocrine Surgical History: Reports: None Neurological Surgical History: Reports: Other (See Below) Other Neurological Surgeries/Procedures: Neck surgery at base of neck, nerve canal. Musculoskeletal Surgical History: Reports: Arthroscopic Knee, Other (See Below) Other Musculoskeletal Surgeries/Procedures:: Right knee arthroscopic surgery. Social & Family History - Family History Family Medical History: Noncontributory - Tobacco Use Smoking Status *Q: Never Smoker Second Hand Smoke Exposure: No - Caffeine Use Caffeine Use: Reports: Soda Other Caffeine Use: one Dr. Pham a day - Recreational Drug Use Recreational Drug Use: No H&P Review of Systems - Review of Systems: Review Of Systems: ROS reveals no pertinent complaints other than HPI. Exam - Exam Exam: See Below - Vital Signs Vital Signs: Last Vital Signs Temp 36.7 C 08/03/18 16:00 Pulse 78 08/03/18 16:00 Resp 28 H 08/03/18 16:00 BP 133/78 08/03/18 16:00 Pulse Ox 93 L 08/03/18 16:00 Weight: 117.934 kg - Exam General: Alert, Cooperative HEENT: PERRLA, Mucosa Moist & [place], Other (TMs obscured by wax completely bilaterally.) Neck: Supple Lungs: Clear to Auscultation, Normal Respiratory Effort Cardiovascular: Regular Rate, Regular Rhythm GI/Abdominal Exam: Normal Bowel Sounds, Soft, Non-Tender, No Distention Extremities: Pedal Edema (trace) Neuro Extensive - Mental Status: Alert, Oriented x3 Psychiatric: Alert - Patient Data Lab Results Last 24 hrs: Laboratory Results - last 24 hr 08/03/18 08/03/18 Range/Units 13:05 13:05 WBC 8.3 (4.5-12.0) X10-3/uL RBC 5.43 (4.30-5.75) x10(6)uL Hgb 15.4 (11.5-15.5) g/dL Hct 46.1 (30.0-51.3) % MCV 84.8 (80-96) fL MCH 28.4 (27.7-33.6) pg MCHC 33.5 (32.2-35.4) g/dL RDW 16.0 H (11.5-15.5) % Plt Count 310 (125-369) X10(3)uL MPV 7.1 L (7.4-10.4) fL Neut % (Auto) 67.1 (46-82) % Lymph % (Auto) 18.8 (13-37) % [place] % (Auto) 8.5 (4-12) % Eos % (Auto) 3 (1.0-5.0) % Baso % (Auto) 3 H (0-2) % Neut # (Auto) 5.5 (1.6-8.3) # Lymph # (Auto) 1.6 (0.6-5.0) # [place] # (Auto) 0.7 (0.0-1.3) # Eos # (Auto) 0.2 (0.0-0.8) # Baso # (Auto) 0.3 H (0.0-0.2) # Sodium 141 (135-145) mmol/L Potassium 2.9 L (3.5-5.3) mmol/L Chloride 100 (100-110) mmol/L Carbon Dioxide 35 H (21-32) mmol/L BUN 13 (7-18) mg/dL Creatinine 1.2 (0.70-1.30) mg/dL Est Cr Clr Drug Dosing TNP Estimated GFR (MDRD) > 60 (>60) BUN/Creatinine Ratio 10.8 (9-20) Glucose 108 (80-116) mg/dL Calcium 9.0 (8.6-10.2) mg/dL Total Bilirubin 1.1 (0.1-1.3) mg/dL AST 13 (5-25) IU/L ALT 23 (12-36) U/L Alkaline Phosphatase 93 (56-112) IU/L Total Protein 7.3 (6.0-8.0) g/dL Albumin 2.9 L (3.2-4.6) g/dL Globulin 4.4 g/dL Albumin/Globulin Ratio 0.7 Result Diagrams: 08/03/18 13:05 08/03/18 13:05 - Problem List (1) Diarrhea SNOMED Code(s): 57123693 ICD Code: R19.7 - DIARRHEA, UNSPECIFIED Status: Acute Current Visit: Yes Problem Details: Patient's presentation sounds much more like a C. difficile infection than it does an obstruction. Ordered CT scan with oral and IV contrast. It showed no acute findings in the abdomen or pelvis, diverticulosis, moderate. 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 Patient was put on contact precautions for C. difficile and also stool studies were ordered. They're pending. We'll await treatment until we get results. (2) Hypokalemia SNOMED Code(s): 67631656 ICD Code: E87.6 - HYPOKALEMIA Status: Acute Priority: High Current Visit: No Onset Date: ~04/11/17 Problem Details: As patient is taking by mouth, will replace orally. 4 doses 40 mEq potassium ordered. We'll recheck in a.m. (3) Urinary retention SNOMED Code(s): 032462927 ICD Code: R33.9 - RETENTION OF URINE, UNSPECIFIED Status: Acute Current Visit: No Problem Details: Catheter. (4) Multiple sclerosis SNOMED Code(s): 46772678 ICD Code: G35 - MULTIPLE SCLEROSIS Status: Chronic Current Visit: No Problem Details: Per the , they follow with neurology and there is no further treatment for this patient for his progressive multiple sclerosis. 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 Pharmacy to dose. Problem List Initiated/Reviewed/Updated: Yes Orders Last 24hrs: Active Orders 24 hr Category Date Time Status Patient Status [ADT] Routine ADT 08/03/18 12:31 Active Height and Weight [RC] 06 Care 08/03/18 12:31 Active Intake and Output [RC] 06,14,22 Care 08/03/18 12:33 Active Oxygen Therapy [RC] PRN Care 08/03/18 12:31 Active Up [place] [RC] ASDIRECTED Care 08/03/18 12:31 Active Vital Signs [RC] 08,12,16,20,00,04 Care 08/03/18 12:31 Active Nothing per Oral Now Diet [DIET] Diet 08/03/18 Breakfast Active Abdomen Pelvis w Cont [CT] Routine Exams 08/03/18 12:42 Taken CBC WITH AUTO DIFF [HEME] AM Lab 08/04/18 05:11 Ordered CDIFF TOXIN A+B GROUP [OP] Routine Lab 08/03/18 15:58 Ordered COMPREHENSIVE METABOLIC PN,CMP [CHEM] AM Lab 08/04/18 05:11 Ordered STOOL CULTURE Stat Lab 08/03/18 15:43 Ordered .Aminopyridine Med 08/04/18 08:00 Ordered 10 mg PO 0800,1200,1800 Acetaminophen/HYDROcodone [[place] 325-5 MG] Med 08/03/18 18:17 Active 0.5 tab PO Q6H PRN Baclofen [Baclofen] Med 08/03/18 21:00 Ordered 40 mg PO TID Diatrizoate Kristin/Diatrizoate Na [Gastrografin 37%] Med 08/03/18 14:30 Active 30 ml PO . DIRECTED Docusate Sodium [Colace] Med 08/03/18 21:00 Active 100 mg PO BID Furosemide [Lasix] Med 08/04/18 09:00 Active 80 mg PO DAILY Gabapentin [Neurontin] Med 08/03/18 21:00 Active 300 mg PO BEDTIME Levothyroxine Med 08/04/18 07:30 Ordered 225 mcg PO ACBREAKFAST Pantoprazole [ProTONIX IV] Med 08/03/18 12:45 Active 40 mg IVPUSH Q24H Potassium Chloride [Klor-Con M20] Med 08/03/18 16:00 Active 40 meq PO 0800,1600,1900,2200 Sertraline [Zoloft] Med 08/04/18 15:30 Active 100 mg PO DAILY@1530 Sodium Chloride 0.9% [Normal Saline] 1,000 ml Med 08/03/18 13:00 Active IV ASDIRECTED Sodium Chloride 0.9% [Saline Flush] Med 08/03/18 13:35 Active 10 ml FLUSH ASDIRECTED PRN Verapamil HCl [Verapamil Sr] Med 08/03/18 21:00 Ordered 120 mg PO BEDTIME Warfarin [Coumadin] Med 08/04/18 16:00 Ordered 2.5 mg PO SUTUTHSA@1600 Warfarin [Coumadin] Med 08/05/18 16:00 Ordered 5 mg PO MOWEFR@1600 diazePAM [Valium] Med 08/03/18 18:17 Active 10 mg PO TID PRN tiZANidine [Zanaflex] Med 08/03/18 21:00 Ordered 8 mg PO BEDTIME Sequential Compression Device [OM.PC] Per Unit Routine Oth 08/03/18 12:33 Ordered Code Status [Resuscitation Status] Routine Resus Stat 08/03/18 18:16 Ordered Medication Orders Hydrocodone Bitart/Acetaminophen ([place] 325-5 Mg) 0.5 tab PO Q6H PRN PRN Reason: Pain Diatrizoate Meglum/Diatrizoate Sod (Gastrografin 37%) 30 ml PO . DIRECTED LUIS FERNANDO Last Admin: 08/03/18 15:10 Dose: 30 ml Diazepam (Valium) 10 mg PO TID PRN PRN Reason: Spasms Docusate Sodium (Colace) 100 mg PO BID LUIS FERNANDO Furosemide (Lasix) 80 mg PO DAILY LUIS FERNANDO Gabapentin (Neurontin) 300 mg PO BEDTIME LUIS FERNANDO Sodium Chloride (Normal Saline) 1,000 mls @ 100 mls/hr IV ASDIRECTED LUIS FERNANDO Last Admin: 08/03/18 13:28 Dose: 100 mls/hr Levothyroxine Sodium (Levothyroxine) 225 mcg PO ACBREAKFAST [facility] Non-Formulary Medication (.Aminopyridine) 10 mg PO 0800,1200,1800 [facility] Non-Formulary Medication (Baclofen [Baclofen]) 40 mg PO TID [facility] Non-Formulary Medication (Verapamil Hcl [Verapamil Sr]) 120 mg PO BEDTIME [facility] Pantoprazole Sodium (Protonix Iv) 40 mg IVPUSH Q24H [facility] Last Admin: 08/03/18 13:29 Dose: 40 mg Potassium Chloride (Klor-Con M20) 40 meq PO 0800,1600,1900,2200 [facility] Stop: 08/04/18 08:01 Last Admin: 08/03/18 16:14 Dose: 20 meq Sertraline HCl (Zoloft) 100 mg PO DAILY@1530 [facility] Sodium Chloride (Saline Flush) 10 ml FLUSH ASDIRECTED PRN PRN Reason: IV flush Last Admin: 08/03/18 15:30 Dose: 10 ml Admin: 08/03/18 14:00 Dose: 10 ml Tizanidine HCl (Zanaflex) 8 mg PO BEDTIME [facility] Warfarin Sodium (Coumadin) 5 mg PO MOWEFR@1600 [facility] Warfarin Sodium (Coumadin) 2.5 mg PO SUTUTHSA@1600 [facility] Assessment/Plan Comment:: Discussed CODE STATUS with the patient and his . The patient would not want CPR under any circumstances. He is willing to be intubated for a short course for something like pneumonia that would be reversible. Thus patient is DNR yes intubation.
[2018-08-03] MEDS: Docusate Sodium 100 MG Cap PO SCH (20:42)
[2018-08-03] MEDS: Baclofen 10 MG Tab PO SCH (20:42)
[2018-08-03] MEDS ORDERED: Potassium Chloride 20 MEQ Tab.ER PO SCH (21:00)
[2018-08-03] MEDS ORDERED: tiZANidine 4 MG Tab PO SCH (21:00)
[2018-08-03] MEDS ORDERED: Verapamil 120 MG Tab.ER PO SCH (21:00)
[2018-08-03] MEDS ORDERED: Gabapentin 300 MG Cap PO SCH (21:00)
[2018-08-03] MEDS: AMINOPYRIDINE PO SCH (21:05)
[2018-08-04] MEDS ORDERED: Levothyroxine 75 MCG Tab PO SCH (07:30)
[2018-08-04] MEDS: AMINOPYRIDINE PO SCH (08:51)
[2018-08-04] MEDS: Docusate Sodium 100 MG Cap PO SCH (08:55)
[2018-08-04] MEDS ORDERED: Furosemide 80 MG Tab PO SCH (09:00)
[2018-08-04] MEDS: Potassium Chloride 20 MEQ Tab.ER PO SCH (09:01)
[2018-08-04] MEDS: Baclofen 10 MG Tab PO SCH (09:34)
[2018-08-04 10:12] VITALS: BP 105/74
--- NOTE | 2018-08-04 11:30 | PCM.DCSUM1 ---
Discharge Summary - Hospital Course Free Text/Narrative:: Date of Admission: 08/03/18 Date of Discharge: 08/04/18 Admission Diagnosis: protracted diarrhea with question of sigmoid volvulus. Discharge Diagnosis: resolution of diarrhea and no evidence of volvulus on CT. Consults: Dr. Mcgrath from general surgery. Procedures: CT abd/pelvis with PO and IV contrast negative for volvulus or obstruction, no evidence of infection. 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 On chart review the patient was treated with Bactrim DS for UTI from 05/08-05/11. They went on a trip to [place], [place] and he was having loose stools during this time. They were loose but formed. About 3-4 weeks ago the stools became worse and more watery every time. They were copious although not terribly foul-smelling. They were mucousy but not bloody. They were brown or dark, not green. Any time he would be moved or repositioned he would have this explosive watery diarrhea. Was seen in the clinic and xray was thought to show sigmoid volvulus so I was asked to directly admit the patient for further assessment and treatment. Dr. Mcgrath also saw the patient. Hospital Course: CT abd/pelvis done with PO/IV contrast was negative for any volvulus or obstruction. Patient's diarrhea resolved. No episodes here at all, which raised the question of whether this was related to PO intake at home. Discussed possibilities and we gave a different potassium supplement here which may be culprit. Discussed indication for diuretics and if these could be decreased with a fluid restriction. Discharge instructions: Discharge to home. Follow up with Dr. Moore next week. Increase potassium to 40 mEq QID and I gave a new Rx of the one we used here. - Discharge Data Discharge Date: 08/04/18 Discharge Disposition: Home, W Home Health Agency 06 Condition: Good - Discharge Diagnosis/Problem(s) (1) Diarrhea SNOMED Code(s): 75856878 ICD Code: R19.7 - DIARRHEA, UNSPECIFIED Status: Acute Current Visit: Yes Problem Details: No diarrhea since admission. Recommended outpatient follow up. No evidence of obstruction on CT. Patient ready for discharge. (2) Hypokalemia SNOMED Code(s): 15493915 ICD Code: E87.6 - HYPOKALEMIA Status: Acute Priority: High Current Visit: No Onset Date: ~04/11/17 Problem Details: Will increase home dose of potassium. Follow up in the clinic. (3) Urinary retention SNOMED Code(s): 612178348 ICD Code: R33.9 - RETENTION OF URINE, UNSPECIFIED Status: Acute Current Visit: No Problem Details: Catheter. (4) Multiple sclerosis SNOMED Code(s): 61672237 ICD Code: G35 - MULTIPLE SCLEROSIS Status: Chronic Current Visit: No Problem Details: Per the , they follow with neurology and there is no further treatment for this patient for his progressive multiple sclerosis. 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 Pharmacy to dose. - Patient Instructions Diet: Heart Healthy Diet (high potassium) Other/Special Instructions: You were admitted to the hospital because you were having diarrhea and xray showed concern for a twist in your bowel. CT scan of your abdomen showed no concern for twist. Your diarrhea stopped here and it is possible the diarrhea at home is related to your potassium. Talk with Dr. Moore about whether or not you should decrease your water pills and reduce your fluid intake. This could help with your low potassium. - Discharge Plan *PRESCRIPTION DRUG MONITORING PROGRAM REVIEWED*: Not Applicable *COPY OF PRESCRIPTION DRUG MONITORING REPORT IN PATIENT KAMLESH: Not Applicable Prescriptions/Med Rec: Potassium Chloride [Klor-Con M20] 40 meq PO QID 1 Days #120 tab.er Home Medications: Home Meds Gabapentin [Neurontin] 300 mg PO BEDTIME 12/31/13 [History] Sertraline [Zoloft] 100 mg PO DAILY@1530 12/31/13 [History] tiZANidine [Zanaflex] 8 mg PO BEDTIME 12/31/13 [History] Cyanocobalamin (Vitamin B12) [Vitamin B12] 250 mcg PO DAILY 06/29/16 [History] Docusate Sodium 100 mg PO BID 06/29/16 [History] Hydrocodone/Acetaminophen [Hydrocodon-Acetaminophen 5-325] 0.5 tab PO Q6H PRN [History] Warfarin [Coumadin] 2.5 mg PO SUTUTHSA@1600 06/29/16 [History] Warfarin [Coumadin] 5 mg PO MOWEFR@1600 06/29/16 [History] diazePAM [Diazepam] 10 mg PO TID PRN 06/29/16 [History] Cholecalciferol (Vitamin D3) [Vitamin D3] 2,000 unit PO DAILY 04/11/17 [History] metOLazone [Metolazone] 2.5 mg PO FR 04/11/17 [History] .Aminopyridine 10 mg PO 0800,1200,1800 07/13/17 [History] Baclofen 40 mg PO TID 07/13/17 [History] Furosemide [Lasix] 80 mg PO DAILY #30 tablet 07/16/17 [Rx] Levothyroxine 225 mcg PO ACBREAKFAST 08/03/18 [History] Verapamil HCl [Verapamil Sr] 120 mg PO BEDTIME 08/03/18 [History] Potassium Chloride [Klor-Con M20] 40 meq PO QID 1 Days #120 tab.er 08/04/18 [Rx] Patient Handouts: Potassium Salts tablets, extended-release tablets or capsules , Hypokalemia, Clostridium Difficile Infection, Hand Washing, [id number] - Discharge Summary/Plan Comment DC Time >30 min.: Yes - General Info Date of Service: 08/04/18 Subjective Update: Patient feels well, no pain and no complaints or concerns. No diarrhea since admission, a couple episodes of clear mucous per rectum. - Patient Data Vitals - Most Recent: Last Vital Signs Temp 36.6 C 08/04/18 09:34 Pulse 66 08/04/18 09:34 Resp 20 08/04/18 09:34 BP 105/74 08/04/18 09:34 Pulse Ox 93 L 08/04/18 09:34 Weight - Most Recent: 119.351 kg I&O - Last 24 hours: Intake & Output 08/03/18 08/04/18 08/04/18 22:59 06:59 14:59 Intake Total 1850 2061 480 Output Total 2800 650 Balance -950 1411 480 Lab Results - Last 24 hrs: Laboratory Results - last 24 hr 10/04/1508/03/18 08/04/18 Range/Units 13:05 13:05 06:35 WBC 8.3 7.4 (4.5-12.0) X10-3/uL RBC 5.43 5.08 (4.30-5.75) x10(6)uL Hgb 15.4 14.2 (11.5-15.5) g/dL Hct 46.1 43.0 (30.0-51.3) % MCV 84.8 84.6 (80-96) fL MCH 28.4 28.0 (27.7-33.6) pg MCHC 33.5 33.1 (32.2-35.4) g/dL RDW 16.0 H 15.9 H (11.5-15.5) % Plt Count 310 290 (125-369) X10(3)uL MPV 7.1 L 7.3 L (7.4-10.4) fL Neut % (Auto) 67.1 63.9 (46-82) % Lymph % (Auto) 18.8 24.7 (13-37) % Hunt % (Auto) 8.5 8.0 (4-12) % Eos % (Auto) 3 3 (1.0-5.0) % Baso % (Auto) 3 H 1 (0-2) % Neut # (Auto) 5.5 4.8 (1.6-8.3) # Lymph # (Auto) 1.6 1.8 (0.6-5.0) # Hunt # (Auto) 0.7 0.6 (0.0-1.3) # Eos # (Auto) 0.2 0.2 (0.0-0.8) # Baso # (Auto) 0.3 H 0.0 (0.0-0.2) # Sodium 141 (135-145) mmol/L Potassium 2.9 L (3.5-5.3) mmol/L Chloride 100 (100-110) mmol/L Carbon Dioxide 35 H (21-32) mmol/L BUN 13 (7-18) mg/dL Creatinine 1.2 (0.70-1.30) mg/dL Est Cr Clr Drug Dosing TNP Estimated GFR (MDRD) > 60 (>60) BUN/Creatinine Ratio 10.8 (9-20) Glucose 108 (80-116) mg/dL Calcium 9.0 (8.6-10.2) mg/dL Total Bilirubin 1.1 (0.1-1.3) mg/dL AST 13 (5-25) IU/L ALT 23 (12-36) U/L Alkaline Phosphatase 93 (56-112) IU/L Total Protein 7.3 (6.0-8.0) g/dL Albumin 2.9 L (3.2-4.6) g/dL Globulin 4.4 g/dL Albumin/Globulin Ratio 0.7 08/04/18 Range/Units 06:35 WBC (4.5-12.0) X10-3/uL RBC (4.30-5.75) x10(6)uL Hgb (11.5-15.5) g/dL Hct (30.0-51.3) % MCV (80-96) fL MCH (27.7-33.6) pg MCHC (32.2-35.4) g/dL RDW (11.5-15.5) % Plt Count (125-369) X10(3)uL MPV (7.4-10.4) fL Neut % (Auto) (46-82) % Lymph % (Auto) (13-37) % Hunt % (Auto) (4-12) % Eos % (Auto) (1.0-5.0) % Baso % (Auto) (0-2) % Neut # (Auto) (1.6-8.3) # Lymph # (Auto) (0.6-5.0) # Hunt # (Auto) (0.0-1.3) # Eos # (Auto) (0.0-0.8) # Baso # (Auto) (0.0-0.2) # Sodium 139 (135-145) mmol/L Potassium 3.4 L (3.5-5.3) mmol/L Chloride 101 (100-110) mmol/L Carbon Dioxide 31 (21-32) mmol/L BUN 12 (7-18) mg/dL Creatinine 1.0 (0.70-1.30) mg/dL Est Cr Clr Drug Dosing 82.12 Estimated GFR (MDRD) > 60 (>60) BUN/Creatinine Ratio 12.0 (9-20) Glucose 83 (80-116) mg/dL Calcium 8.4 L (8.6-10.2) mg/dL Total Bilirubin 1.5 H (0.1-1.3) mg/dL AST 13 (5-25) IU/L ALT 19 D (12-36) U/L Alkaline Phosphatase 83 (56-112) IU/L Total Protein 6.7 (6.0-8.0) g/dL Albumin 2.7 L (3.2-4.6) g/dL Globulin 4.0 g/dL Albumin/Globulin Ratio 0.7 Med Orders - Current: Current Medications Hydrocodone Bitart/Acetaminophen ([place] 325-5 Mg) 0.5 tab PO Q6H PRN PRN Reason: Pain Baclofen (Lioresal) 40 mg PO TID [facility] Last Admin: 08/04/18 09:34 Dose: 40 mg Diatrizoate Meglum/Diatrizoate Sod (Gastrografin 37%) 30 ml PO . DIRECTED [facility] Last Admin: 08/03/18 15:10 Dose: 30 ml Diazepam (Valium) 10 mg PO TID PRN PRN Reason: Spasms Docusate Sodium (Colace) 100 mg PO BID [facility] Last Admin: 08/04/18 08:55 Dose: 100 mg Furosemide (Lasix) 80 mg PO DAILY [facility] Last Admin: 08/04/18 08:55 Dose: 80 mg Gabapentin (Neurontin) 300 mg PO BEDTIME [facility] Last Admin: 08/03/18 20:42 Dose: 300 mg Sodium Chloride (Normal Saline) 1,000 mls @ 100 mls/hr IV ASDIRECTED [facility] Last Admin: 08/03/18 23:57 Dose: 100 mls/hr Levothyroxine Sodium (Levothyroxine) 225 mcg PO ACBREAKFAST [facility] Last Admin: 08/04/18 08:55 Dose: 225 mcg Aminopyridine 5mg Capsules Own Med 10 mg PO DAILY@0800,1200,1800 [facility] Last Admin: 08/04/18 08:51 Dose: 10 mg Pantoprazole Sodium (Protonix Iv) 40 mg IVPUSH Q24H [facility] Last Admin: 08/03/18 13:29 Dose: 40 mg Pharmacy Consult (Consult To Pharmacy) 1 each .XX ASDIRECTED [facility] Sertraline HCl (Zoloft) 100 mg PO DAILY@1530 [facility] Sodium Chloride (Saline Flush) 10 ml FLUSH ASDIRECTED PRN PRN Reason: IV flush Last Admin: 08/03/18 15:30 Dose: 10 ml Tizanidine HCl (Zanaflex) 8 mg PO BEDTIME [facility] Last Admin: 08/03/18 20:42 Dose: 8 mg Verapamil HCl ([place] Sr) 120 mg PO BEDTIME [facility] Last Admin: 08/03/18 20:40 Dose: 120 mg Warfarin Sodium (Coumadin) 5 mg PO MOWEFR@1600 [facility] Warfarin Sodium (Coumadin) 2.5 mg PO SUTUTHSA@1600 [facility] Discontinued Medications Iopamidol (Isovue-370 (76%)) 150 ml IV ONETIME ONE Stop: 08/03/18 14:17 Last Admin: 08/03/18 15:10 Dose: 150 ml Potassium Chloride (Klor-Con M20) 40 meq PO TID [facility] Stop: 08/04/18 21:01 Potassium Chloride (Klor-Con M20) 40 meq PO 0800,1600,1900,2200 [facility] Stop: 08/04/18 08:01 Last Admin: 08/04/18 09:01 Dose: 40 meq - Exam General: Reports: Alert, Oriented, Cooperative HEENT: Reports: Pupils Equal, Pupils Reactive Neck: Reports: Supple Lungs: Reports: Clear to Auscultation, Normal Respiratory Effort Cardiovascular: Reports: Regular Rate, Regular Rhythm GI/Abdominal Exam: Normal Bowel Sounds, Soft, Non-Tender, No Distention Extremities: Pedal Edema (1+ edema.)
[2018-08-04] MEDS ORDERED: Sertraline 100 MG Tab PO SCH (15:30)
[2018-08-04] MEDS ORDERED: Warfarin 2.5 MG Tab PO SCH (16:00)
[2018-08-05] MEDS ORDERED: Warfarin 5 MG Tab PO SCH (16:00)
== END 2018-08-04 11:45 | disposition home health service (06) | DRG 391 ==
LOC: FB.MS 12:02
PROVIDERS: ADMIT Family Medicine; ATTEND Family Medicine
DX: R19.7 Diarrhea, unspecified (principal); R53.2 Functional quadriplegia; Z66 Do not resuscitate; E87.6 Hypokalemia; G35 Multiple sclerosis; Z99.3 Dependence on wheelchair; E03.9 Hypothyroidism, unspecified; Z86.718 Personal history of other venous thrombosis and embolism; Z79.01 Long term (current) use of anticoagulants; F32.9 Major depressive disorder, single episode, unspecified; R33.9 Retention of urine, unspecified; N31.9 Neuromuscular dysfunction of bladder, unspecified; H54.7 Unspecified visual loss; E66.9 Obesity, unspecified; Z68.34 Body mass index [BMI] 34.0-34.9, adult; Z88.0 Allergy status to penicillin; Z91.048 Other nonmedicinal substance allergy status
CPT/HCPCS: 36415; 74177; 80053; 85025; A9270-GY; C9113; J7030; J7050; Q9963; Q9967